=== PATIENT | female | born 1940 | race Caucasian/White ===

== ENCOUNTER → 2016-05-29 | Day surgery (SDC) | payer BC ==
[2016-05-10 13:14] VITALS: Ht 167.6 cm; Wt 54.5 kg
[~2016-05-29] VITALS: Ht 167.6 cm; Wt 54.5 kg
[~2016-05-29] MED LIST: 500ML BSS 0.3ML EPI 1:1000PF IRRIG ONE; ACETAMINOPHEN 325 MG TAB PO PRN; AMVISC PLUS 0.8ML SYRINGE INT OCU ONE; ATROPINE SULFATE 0.1 MG/ML 5ML SYR IV PRN; BRIMONIDINE TART 0.2% OP SOLN PER DROP CHARGE ONE; BSS FLUSH ONE; CHOL2000 PO; DTRSR4 PO; ENDOCOAT 0.85ML SYRINGE INT OCU ONE; EpHEDrine SULFATE INJ 50 MG/ML AMP IV PRN; EpINEphrine INJ 1MG/ML AMP 1 MG/ML AMP ONE; LACTATED RINGER'S 1000ML 500 ML IV SCH; LIDOCAINE 4% OP SOLN DROP CHARGE ONE; LIDOCAINE 4% OP SOLN DROP CHARGE OPR SCH; LIDOCAINE HCL 1% MPF 2 ML VIAL ONE; METH1TAB66 PO; MIDAZOLAM HCL 1 MG/ML 2ML VIAL ONE; MOXIFLOXACIN OPH SOLN PER DROP CHARGE ONE; NEPA0.6D OPR; POVIDONE-IODINE OP SOLN 30 ML BTL ONE; PRED1SUS OPR; PROPARACAINE 0.5% OP SOLN PER DROP CHARGE OPR SCH; RALO60TA31 PO; SULF-183 PO; TOBRAMYCIN/DEXAMETHASONE OPH OINT PER APPLN CHARGE ONE
[2016-05-29] MEDS: PHENYLEPHRINE HCL 2.5% OP SOLN PER DROP CHARGE OPR SCH ×2 (08:28→08:33)
[2016-05-29] MEDS: TROPICAMIDE 1% OP SOLN PER DROP CHARGE OPR SCH ×2 (08:29→08:34)
[2016-05-29] MEDS: CYCLOPENTOLATE HCL 1% OP SOLN PER DROP CHARGE OPR SCH ×2 (08:30→08:35)
[2016-05-29] MEDS: KETOROLAC 0.5% OP SOLN PER DROP CHARGE OPR SCH ×2 (08:31→08:36)
[2016-05-29] MEDS: MOXIFLOXACIN OPH SOLN PER DROP CHARGE OPR SCH ×2 (08:32→08:42)
--- NOTE | 2016-05-29 08:43 | History & Physical Bridge - [place] ---
H&P Re-Evaluation Bridge Note: I have examined the patient, reviewed the History & Physical and in the interval since the performance of the History & Physical I have noted the following changes of clinical significance: No changes noted
--- NOTE | 2016-05-29 10:03 | Discharge Instructions-SurgCtr ---
Discharge Instructions Date of Service May 29, 2016. Visit Reason for Visit: Cataract Right Eye Discharge Discharge Diagnosis / Problem: cataract right eye Discharge Goals Goal(s): Improve function Activity Recommendations Activity Limitations: per Instructions/Follow-up section Lifting Limitations: no more than 5 pounds Anesthesia . Post Anesthesia Instructions: If you have had General Anesthesia or IV Sedation: * Do not drive today. * Resume driving when surgeon permits. * Do not make important decisions or sign legal documents today. * Call surgeon for: 1. Temperature elevations greater than 101 degrees F. 2. Uncontrollable pain. 3. Excessive bleeding. 4. Persistent nausea and vomiting. 5. Medication intolerance (nausea, vomiting or rash). * For nausea and vomiting use only clear liquids such as: tea, soda, bouillon until nausea subsides, then gradually increase diet as tolerated. * If you have any concerns or questions, call your surgeon's office. If physician is unavailable and it is an emergency, call 911 or go to the nearest emergency room. . Instructions / Follow-Up Instructions / Follow-Up ACTIVITY RECOMMENDATIONS: * Light activities * You may walk outside, read, watch television. * Mild irritation and blurred vision are common for the first few days, redness around the white part of the eye is common. MEDICATIONS: Resume previous medications unless instructed otherwise by your surgeon. Eye drops (today and tomorrow): Cipro - one drop in operative eye every 2 hours while awake Prednisolone 1% - one drop in operative eye every 2 hours while awake Ilevro - one drop operative eye 1 times daily SPECIAL CARE INSTRUCTIONS: * If any problems or concerns, please call Dr. Marr's office at . * Keep plastic shield taped over eye to sleep at night. * Keep plastic shield taped over eye except to administer eye drops. * Keep plastic shield on until office visit the following day. FOLLOW UP VISIT: Follow-up with Dr. Marr in the [place] office as scheduled. If not already scheduled, please call the office at . Diet Recommendations Home Diet: resume previous diet Procedures Procedures Performed: Right Cataract Phacoemulsification With Intraocular Lens Implant Pending Studies Studies pending at discharge: no Medical Emergencies . Who to Call and When: Medical Emergencies: If at any time you feel your situation is an emergency, please call 911 immediately. . Non-Emergent Contact Non-Emergency issues call your: Academy Director . . "Provider Documentation" section prepared by Jg Marr.
--- NOTE | 2016-05-29 10:04 | [facility] Post Operative Brief Note ---
Immediate Operative Summary Operative Date May 29, 2016. Pre-Operative Diagnosis Cataract Right Eye Post-Operative Diagnosis Same Procedure(s) Performed Right Cataract Phacoemulsification With Intraocular Lens Implant Surgeon Dr. Marr Surveillance Specialist Surgeon(s) None Estimated Blood Loss 0 Findings cataract right eye Specimens None Complication(s) None Disposition Recovery Room / PACU
[2016-05-29 10:06] VITALS: TEMP 37.1
[2016-05-29 10:28] VITALS: BP 139/84; PULSE 72; O2SAT 100
--- NOTE | 2016-05-29 10:34 | Anesthesia Progress Nt - [facility] ---
Anesthesia Post Op Note Date & Time May 29, 2016 at 10:33 Vital Signs Pain Intensity: 0 Vital Signs Past 12 Hours Date Time Temp Pulse Resp B/P Pulse Ox O2 Delivery O2 Flow Rate FiO2 05/29/16 10:28 72 16 139/84 100 Room Air 05/29/16 10:06 37.1 67 16 148/79 99 Room Air 05/29/16 08:04 36.4 70 20 131/60 100 Room Air Notes Mental Status: alert / awake / arousable, participated in evaluation Pt Amnestic to Procedure: Yes Nausea / Vomiting: adequately controlled Pain: adequately controlled Airway Patency, RR, SpO2: stable & adequate BP & HR: stable & adequate Hydration State: stable & adequate Anesthetic Complications: no major complications apparent
--- NOTE | 2016-05-29 14:09 | OPERATIVE REPORT ---
DATE OF OPERATION: 05/29/2016 PREOPERATIVE DIAGNOSIS: Cataract, right eye. POSTOPERATIVE DIAGNOSIS: Cataract, right eye. PROCEDURE: Phacoemulsification cataract extraction with intraocular lens placement, right eye. SURGEON: Dr. Marr. COMPLICATIONS: None. ESTIMATED BLOOD LOSS: None. ANESTHESIA: Topical with sedation. OPERATION AND FINDINGS: DESCRIPTION OF PROCEDURE: After informed consent was obtained in the holding area the patient was wheeled back to the Operating Room where cardiac monitoring leads and oxygen by nasal cannula was administered by Anesthesia. Gentle IV sedation was given, and the patient's right eye was prepped and draped in usual sterile fashion. A wire lid speculum was placed into the right eye and the operating microscope was swung into position. Using 0.12 forceps and a Supersharp blade a paracentesis port was made 3 o'clock hours away from the 9 o'clock position of patient's right eye. 1% non-preserved Lidocaine was then injected into the anterior chamber for anesthesia. A 2.2 mm keratotome blade was then used to make a shelved clear corneal incision at the 9 o'clock position of her right eye. Amvisc was injected into the anterior chamber and a cystotome and Utrata forceps were used to perform a curvilinear capsulorrhexis. BSS on a hydrodissection cannula was used to hydrodissect the lens nucleus away from the capsular bag. The phacoemulsification handpiece was then used in a stop and chop fashion to remove the lens nucleus. The irrigation and aspiration handpiece was then used to remove the residual cortical material. Amvisc was injected into the capsular bag and anterior chamber and a Bausch \T\ Lomb MX60 21.5 Diopter intraocular lens was injected into the capsular bag. Irrigation and aspiration handpiece was used to remove the residual viscoelastic material. The wounds were hydrated and noted to be watertight. The wire lid speculum was removed from the eye. Vigamox, Brimonidine, and TobraDex ointment were placed on the eye and it was shielded. It should be noted that EndoCoat was used throughout the case to protect the cornea endothelium. DISPOSITION: The patient tolerated the procedure well and was wheeled to the post anesthesia care unit in stable condition. I attest to the content of the Intraoperative Record and any orders documented therein. Any exceptions are noted below. I attest to the content of the Intraoperative Record and any orders documented therein. Any exceptio ns are noted below.
== END | disposition home or self-care (01) ==
LOC: X.SURG 07:50
PROVIDERS: ATTEND Ophthalmology
DX: H25.11 Age-related nuclear cataract, right eye (principal)

== ENCOUNTER → 2016-06-01 | Outpatient (CLI) | payer BC ==
[~2016-06-01] MED LIST changes: -500ML BSS 0.3ML EPI 1:1000PF IRRIG ONE; -ACETAMINOPHEN 325 MG TAB PO PRN; -AMVISC PLUS 0.8ML SYRINGE INT OCU ONE; -ATROPINE SULFATE 0.1 MG/ML 5ML SYR IV PRN; -BRIMONIDINE TART 0.2% OP SOLN PER DROP CHARGE ONE; -BSS FLUSH ONE; -ENDOCOAT 0.85ML SYRINGE INT OCU ONE; -EpHEDrine SULFATE INJ 50 MG/ML AMP IV PRN; -EpINEphrine INJ 1MG/ML AMP 1 MG/ML AMP ONE; -LACTATED RINGER'S 1000ML 500 ML IV SCH; -LIDOCAINE 4% OP SOLN DROP CHARGE ONE; -LIDOCAINE 4% OP SOLN DROP CHARGE OPR SCH; -LIDOCAINE HCL 1% MPF 2 ML VIAL ONE; -MIDAZOLAM HCL 1 MG/ML 2ML VIAL ONE; -MOXIFLOXACIN OPH SOLN PER DROP CHARGE ONE; -POVIDONE-IODINE OP SOLN 30 ML BTL ONE; -PROPARACAINE 0.5% OP SOLN PER DROP CHARGE OPR SCH; -TOBRAMYCIN/DEXAMETHASONE OPH OINT PER APPLN CHARGE ONE
== END | disposition home or self-care (01) ==
LOC: C.LAB 09:52
PROVIDERS: ATTEND Nurse Practitioner Family
DX: R35.0 Frequency of micturition (principal)

== ENCOUNTER → 2016-06-12 | Day surgery (SDC) | payer BC ==
[2016-06-09 15:37] VITALS: Ht 167.6 cm; Wt 54.5 kg
[~2016-06-12] VITALS: Ht 167.6 cm; Wt 54.5 kg
[~2016-06-12] MED LIST changes: +500ML BSS 0.3ML EPI 1:1000PF IRRIG ONE; +ACETAMINOPHEN 325 MG TAB PO PRN; +AMVISC PLUS 0.8ML SYRINGE INT OCU ONE; +ATROPINE SULFATE 0.1 MG/ML 5ML SYR IV PRN; +BRIMONIDINE TART 0.2% OP SOLN PER DROP CHARGE ONE; +BSS FLUSH ONE; +ENDOCOAT 0.85ML SYRINGE INT OCU ONE; +EpHEDrine SULFATE INJ 50 MG/ML AMP IV PRN; +EpINEphrine INJ 1MG/ML AMP 1 MG/ML AMP ONE; +LACTATED RINGER'S 1000ML 500 ML IV SCH; +LIDOCAINE 4% OP SOLN DROP CHARGE ONE; +LIDOCAINE 4% OP SOLN DROP CHARGE OPL SCH; +LIDOCAINE HCL 1% MPF 2 ML VIAL ONE; +MIDAZOLAM HCL 1 MG/ML 2ML VIAL ONE; +MOXIFLOXACIN OPH SOLN PER DROP CHARGE ONE; +ONDANSETRON INJ 2 MG/ML 2 ML VIAL IV PRN; +POVIDONE-IODINE OP SOLN 30 ML BTL ONE; +PROPARACAINE 0.5% OP SOLN PER DROP CHARGE OPL SCH; +TOBRAMYCIN/DEXAMETHASONE OPH OINT PER APPLN CHARGE ONE
[2016-06-12] MEDS: PHENYLEPHRINE HCL 2.5% OP SOLN PER DROP CHARGE OPL SCH ×2 (11:41→11:46)
[2016-06-12] MEDS: TROPICAMIDE 1% OP SOLN PER DROP CHARGE OPL SCH ×2 (11:42→11:47)
[2016-06-12] MEDS: CYCLOPENTOLATE HCL 1% OP SOLN PER DROP CHARGE OPL SCH ×2 (11:43→11:48)
[2016-06-12] MEDS: KETOROLAC 0.5% OP SOLN PER DROP CHARGE OPL SCH ×2 (11:44→11:48)
[2016-06-12] MEDS: MOXIFLOXACIN OPH SOLN PER DROP CHARGE OPL SCH ×2 (11:45→11:55)
--- NOTE | 2016-06-12 12:35 | Discharge Instructions-SurgCtr ---
Discharge Instructions Date of Service Jun 12, 2016. Visit Reason for Visit: Cataract Left Eye Discharge Discharge Diagnosis / Problem: cataract left eye Discharge Goals Goal(s): Improve function Activity Recommendations Activity Limitations: per Instructions/Follow-up section Lifting Limitations: no more than 5 pounds Anesthesia . Post Anesthesia Instructions: If you have had General Anesthesia or IV Sedation: * Do not drive today. * Resume driving when surgeon permits. * Do not make important decisions or sign legal documents today. * Call surgeon for: 1. Temperature elevations greater than 101 degrees F. 2. Uncontrollable pain. 3. Excessive bleeding. 4. Persistent nausea and vomiting. 5. Medication intolerance (nausea, vomiting or rash). * For nausea and vomiting use only clear liquids such as: tea, soda, bouillon until nausea subsides, then gradually increase diet as tolerated. * If you have any concerns or questions, call your surgeon's office. If physician is unavailable and it is an emergency, call 911 or go to the nearest emergency room. . Instructions / Follow-Up Instructions / Follow-Up ACTIVITY RECOMMENDATIONS: * Light activities * You may walk outside, read, watch television. * Mild irritation and blurred vision are common for the first few days, redness around the white part of the eye is common. MEDICATIONS: Resume previous medications unless instructed otherwise by your surgeon. Eye drops (today and tomorrow): Cipro - one drop in operative eye every 2 hours while awake Prednisolone 1% - one drop in operative eye every 2 hours while awake Ilevro - one drop operative eye 1 times daily SPECIAL CARE INSTRUCTIONS: * If any problems or concerns, please call Dr. Marr's office at . * Keep plastic shield taped over eye to sleep at night. * Keep plastic shield taped over eye except to administer eye drops. * Keep plastic shield on until office visit the following day. FOLLOW UP VISIT: Follow-up with Dr. Marr in the [place] office as scheduled. If not already scheduled, please call the office at . Diet Recommendations Home Diet: resume previous diet Procedures Procedures Performed: Left Cataract Phacoemulsification With Intraocular Lens Implant Pending Studies Studies pending at discharge: no Medical Emergencies . Who to Call and When: Medical Emergencies: If at any time you feel your situation is an emergency, please call 911 immediately. . Non-Emergent Contact Non-Emergency issues call your: Master Carpenter . . "Provider Documentation" section prepared by Jg Marr.
--- NOTE | 2016-06-12 12:35 | [facility] Post Operative Brief Note ---
Immediate Operative Summary Operative Date Jun 12, 2016. Pre-Operative Diagnosis Cataract left eye Post-Operative Diagnosis same Procedure(s) Performed Left Cataract Phacoemulsification With Intraocular Lens Implant Surgeon Dr Marr Real Property Evaluator Surgeon(s) 0 Estimated Blood Loss 0 Findings cataract left eye Specimens 0 Complication(s) None Disposition Recovery Room / PACU
[2016-06-12 12:46] VITALS: TEMP 36.3
[2016-06-12 13:02] VITALS: BP 117/76; PULSE 73; O2SAT 98
--- NOTE | 2016-06-12 13:02 | Anesthesia Progress Nt - [facility] ---
Anesthesia Post Op Note Date & Time Jun 12, 2016 at 13:01 Vital Signs Pain Intensity: 0 Vital Signs Past 12 Hours Date Time Temp Pulse Resp B/P Pulse Ox O2 Delivery O2 Flow Rate FiO2 06/12/16 12:46 36.3 66 14 116/74 97 Room Air 06/12/16 11:38 36.6 77 16 136/77 97 Room Air Notes Mental Status: alert / awake / arousable, participated in evaluation Pt Amnestic to Procedure: Yes Nausea / Vomiting: adequately controlled Pain: adequately controlled Airway Patency, RR, SpO2: stable & adequate BP & HR: stable & adequate Hydration State: stable & adequate Anesthetic Complications: no major complications apparent
--- NOTE | 2016-06-12 15:14 | OPERATIVE REPORT ---
DATE OF OPERATION: 06/12/2016 PREOPERATIVE DIAGNOSIS: Cataract, left eye. POSTOPERATIVE DIAGNOSIS: Cataract, left eye. PROCEDURE: Phacoemulsification cataract extraction with intraocular lens placement, left eye. SURGEON: Dr. Marr. COMPLICATIONS: None. ESTIMATED BLOOD LOSS: None. ANESTHESIA: Topical with sedation. DESCRIPTION OF PROCEDURE: After informed consent was obtained in the holding area the patient was wheeled back to the Operating Room where cardiac monitoring leads and oxygen by nasal cannula was administered by Anesthesia. Gentle IV sedation was given, and the patient's left eye was prepped and draped in usual sterile fashion. A wire lid speculum was placed into the left eye and the operating microscope was swung into position. Using 0.12 forceps and a Supersharp blade a paracentesis port was made 3 o'clock hours away from the 3 o'clock position of patient's left eye. 1% non-preserved Lidocaine was then injected into the anterior chamber for anesthesia. A 2.2 mm keratotome blade was then used to make a shelved clear corneal incision at the 3 o'clock position of her left eye. Amvisc was injected into the anterior chamber and a cystotome and Utrata forceps were used to perform a curvilinear capsulorrhexis. BSS on a hydrodissection cannula was used to hydrodissect the lens nucleus away from the capsular bag. The phacoemulsification handpiece was then used in a stop and chop fashion to remove the lens nucleus. The irrigation and aspiration handpiece was then used to remove the residual cortical material. Amvisc was injected into the capsular bag and anterior chamber and a Bausch \T\ Lomb MX60 28.0 Diopter intraocular lens was injected into the capsular bag. Irrigation and aspiration handpiece was used to remove the residual viscoelastic material. The wounds were hydrated and noted to be watertight. The wire lid speculum was removed from the eye. Vigamox, Brimonidine, and TobraDex ointment were placed on the eye and it was shielded. It should be noted that EndoCoat was used during the case to protect the cornea endothelium. DISPOSITION: The patient tolerated the procedure well and was wheeled to the post anesthesia care unit in stable condition. I attest to the content of the Intraoperative Record and any orders documented therein. Any exceptions are noted below. I attest to the content of the Intraoperative Record and any orders documented therein. Any exceptio ns are noted below.
== END | disposition home or self-care (01) ==
LOC: X.SURG 11:27
PROVIDERS: ATTEND Ophthalmology
DX: H25.12 Age-related nuclear cataract, left eye (principal); H43.89 Other disorders of vitreous body

== ENCOUNTER → 2017-01-25 | Outpatient (CLI) | payer BC ==
[~2017-01-25] MED LIST changes: -500ML BSS 0.3ML EPI 1:1000PF IRRIG ONE; -ACETAMINOPHEN 325 MG TAB PO PRN; -AMVISC PLUS 0.8ML SYRINGE INT OCU ONE; -ATROPINE SULFATE 0.1 MG/ML 5ML SYR IV PRN; -BRIMONIDINE TART 0.2% OP SOLN PER DROP CHARGE ONE; -BSS FLUSH ONE; -ENDOCOAT 0.85ML SYRINGE INT OCU ONE; -EpHEDrine SULFATE INJ 50 MG/ML AMP IV PRN; -EpINEphrine INJ 1MG/ML AMP 1 MG/ML AMP ONE; -LACTATED RINGER'S 1000ML 500 ML IV SCH; -LIDOCAINE 4% OP SOLN DROP CHARGE ONE; -LIDOCAINE 4% OP SOLN DROP CHARGE OPL SCH; -LIDOCAINE HCL 1% MPF 2 ML VIAL ONE; -MIDAZOLAM HCL 1 MG/ML 2ML VIAL ONE; -MOXIFLOXACIN OPH SOLN PER DROP CHARGE ONE; -ONDANSETRON INJ 2 MG/ML 2 ML VIAL IV PRN; -POVIDONE-IODINE OP SOLN 30 ML BTL ONE; -PROPARACAINE 0.5% OP SOLN PER DROP CHARGE OPL SCH; -TOBRAMYCIN/DEXAMETHASONE OPH OINT PER APPLN CHARGE ONE
== END | disposition home or self-care (01) ==
LOC: C.MAMM 07:48
PROVIDERS: ATTEND Family Medicine
DX: M85.851 Other specified disorders of bone density and structure, right thigh (principal); M85.852 Other specified disorders of bone density and structure, left thigh; M85.831 Other specified disorders of bone density and structure, right forearm; M85.832 Other specified disorders of bone density and structure, left forearm

== ENCOUNTER → 2017-04-30 | Outpatient (CLI) | payer BC ==
[~2017-04-30] MED LIST changes: -SULF-183 PO; +SULF-302 PO
[2017-04-30 10:01] LABS: CREATININE 1.06 mg/dl (0.60-1.20)
== END | disposition home or self-care (01) ==
LOC: C.LAB1850 08:54
PROVIDERS: ATTEND Internal Medicine Rheumatology
DX: M81.0 Age-related osteoporosis without current pathological fracture (principal); E55.9 Vitamin D deficiency, unspecified; E61.8 Deficiency of other specified nutrient elements

== ENCOUNTER → 2017-10-01 | Outpatient (CLI) | payer BC | END | disposition home or self-care (01) | LOC: C.LABSPEC 11:34 | PROVIDERS: ATTEND Urology | DX: R39.15 Urgency of urination (principal) ==

== ENCOUNTER 2022-08-08 12:13 | Inpatient (IN) ==
[2022-08-08] MEDS ORDERED: fentaNYL citrate PF 100 MCG/2 ML VIAL IV PRN (12:26)
[2022-08-08] MEDS ORDERED: SODIUM CHLORIDE 0.9% 500 ML IV STA (12:26)
[2022-08-08] MEDS ORDERED: ONDANSETRON INJ 2 MG/ML 2 ML VIAL IV STA (12:26)
--- NOTE | 2022-08-08 12:32 | Emergency Department Note ---
Impression & Plan Acute cholecystitis, Right sided abdominal pain ED Provider Note NAME: SANTY OCAMPO AGE: 81 SEX: F : 1940 ARRIVES VIA: Walk-In INFORMANT: Patient, ED PROVIDER(S): Goyo Plascencia DO CHIEF COMPLAINT: Abdominal pain HPI: The patient is an 81-year-old female who presented to the emergency department for an evaluation of abdominal pain. The patient had abdominal pain since last . She describes right-sided abdominal pain which is very severe. She states is worsened with food. Worsens with ambulation and palpation over the lower abdomen. The patient denies having any fever but she has had vomiting and now she is unable to eat or drink because of the pain. She has had dry heaving. The patient was seen by the surgeon today and sent back to the emergency department for further evaluation ROS: See above HPI for pertinent positives & negatives. A total of 10 systems reviewed and were otherwise negative. PAST MEDICAL HISTORY: See Below PAST SURGICAL HISTORY: See Below FAMILY HISTORY: See Below SOCIAL HISTORY: See Below HOME MEDICATIONS: See Below ALLERGIES: See Below VITALS: See Below PHYSICAL EXAMINATION: GENERAL: The patient is awake and alert. She is very anxious. EYES: The conjunctivae are clear. The pupils are round and reactive. EARS, NOSE, MOUTH AND THROAT: The nose is without any evidence of any deformity. NECK: The neck is nontender and supple. RESPIRATORY: Normal respiratory effort is noted there is no evidence of wheezing rhonchi or rales CARDIOVASCULAR: Regular rate and rhythm noted there no murmurs rubs or gallops normal S1 normal S2. GASTROINTESTINAL: The abdomen is soft. There is right-sided abdominal tenderness to palpation which is moderate MUSCULOSKELETAL/EXTREMITIES: There is no evidence of gross deformity full range of motion is noted in the hips and shoulders. SKIN: There is no obvious evidence of any rash. There are no petechiae, pallor or cyanosis noted. NEUROLOGIC: Patient is awake alert and oriented x3. MEDICAL DECISION MAKING: The patient is an 81-year-old female who presented to the emergency department for abdominal pain. The patient's had right upper quadrant abdominal pain as we ll as right lower quadrant abdominal pain over the course of the last week. The patient was seen in our facility recently. She was diagnosed with cholecystitis and given follow-up with general surgery. She did have a follow-up appointment today but was sent to the emergency department because of the degree of pain. The patient was treated with IV fluids IV antibiotics and IV pain medication. On reevaluation she was feeling much better. I discussed her condition with the on-call general surgeon [facility] agreed to evaluate the patient in the emergency department for further management and disposition. The patient was feeling much better on reevaluation. I do feel there is some further work-up she may need including MRCP. She has distended gallbladder but there is no stones. Triage Nursing notes reviewed. Prior medical records reviewed Vital Signs: reviewed and remarkable for elevated blood pressure. Differential diagnosis: Etiologies such as appendicitis, diverticulitis, obstruction, inflammatory bowel disease, renal colic, PUD, biliary pathology, pancreatitis, mesenteric ischemia, aortic pathology, infections, genitourinary, UTI, perforated viscus, as well as others were entertained. ER treatment provided: See below Diagnostics interpreted by me: ECG: EKG was obtained in the emergency department. My interpretation is normal sinus rhythm at 75 bpm. There were no PVCs noted. Nonspecific ST abnormalities with peak T waves were noted throughout. There were also ST depressions. This was compared to a tracing from August 05, 2022. No specific changes were noted. Cardiac Monitoring: An order was placed for continuous cardiac monitoring. The monitor shows a rate of 76 bpm with sinus rhythm. Laboratory studies: As stated above and show below. Imaging studies: See below. Radiographic imaging was reviewed by myself Consultation(s): I discussed this case with Dr. Bray who states he sent the patient to the emergency department because she was in too much pain and he could not evaluate her in the office. He recommends medical admission with consultation with the on-call surgeon. I discussed this case with Dr. Shabazz who is on for unassigned general surgery. I discussed this case with Dr. Solorzano who is on-call for the [facility] hospitalist group. 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 Taina Jones at [facility] History of ultrasound guided needle biopsy (04/20/21) Breast - Right Hx of BSO (bilateral salpingo-oophorectomy) Hx of tonsillectomy S/P right mastectomy S/P tubal ligation Family History Mother Breast cancer Sister Ovarian cancer Multiple sclerosis Aunt Ovarian cancer Maternal Uterine cancer Breast cancer Grandmother (Maternal) Cancer Father Heart disease Daughter Sarcoma Daughter BRCA gene mutation positive Social History Smoking Status: Never smoker Tobacco Type: Cigarettes packs per day: 0.4; Second Hand Exposure: Yes (as a child, parents smoked in home); Do You Dip or Chew Tobacco: No; Hx Alcohol Use: Yes Alcohol type: wine Alcohol Intake Frequency: Monthly or Less Hx Substance Use: No Preferred Language: Albanian Communication Ability: Effective Visual Impairment: Limited Hearing Ability: Use of Hearing Aid [employer] Required: No Beliefs That Will Affect Care: None marital status: / Current Living Situation: Alone current occupational status: retired current occupation: Artist How many Children do You have: 2 How many Children do You have Comment: 1 living, 1 Feels Safe at Home: Yes Childhood Exposure to Second-Hand Smoke: Yes Diet: regular during the past year weight has: remained stable Dental Care, Regularly: Yes Assistive Devices: Glasses and Hearing Aid - Bilateral Allergies Allergies Allergy/AdvReac Type Severity Reaction Status Date / Time tetracycline Allergy Unknown BRUISING; Verified 08/08/22 15:37 rash on legs Home Meds Home Medications Medication Instructions Recorded Confirmed atorvastatin 20 mg tablet 20 mg PO HS 05/15/19 08/08/22 cholecalciferol (vitamin D3) 50 2,000 unit PO HS 05/15/19 08/08/22 mcg (2,000 unit) tablet (Vitamin D3) coQ10 (ubiquinol) 100 mg capsule 100 mg PO HS 05/15/19 08/08/22 denosumab 60 mg/mL subcutaneous 60 mg subcut UD 03/03/20 08/08/22 syringe (Prolia) metoprolol succinate 25 mg 12.5 mg PO HS 07/05/20 08/08/22 tablet,extended release 24 hr multivitamin (Daily Multi-Vitamin 1 tab PO DAILY 05/03/21 08/08/22 tablet) calcium carb-Ca gluc 500 mg 2 tab PO DAILY 08/01/21 08/08/22 calcium-magnesium ox-Mg gluc 250 mg tablet (Calcium Magnesium) tamoxifen 20 mg tablet 20 mg PO DAILY 10/12/21 08/08/22 mirabegron 50 mg tablet,extended 25 mg PO DAILY 08/08/22 08/08/22 release 24 hr (Myrbetriq) Previous Rx's Medication Instructions Recorded valacyclovir 500 mg tablet 500 mg PO BID PRN outbreak #30 tabs 10/12/21 (Valtrex) ondansetron 4 mg disintegrating 4 mg PO Q6H PRN nausea and 08/05/22 tablet vomiting #15 tabs Results & Data (ED) Vital Signs Vital Signs - 24 hr 08/08/22 12:18 08/08/22 12:26 08/08/22 14:48 Temperature 36.3 C L Temperature Source Temporal Artery Scan Pulse Rate 69 Pulse Rate [Right] 76 Pulse Rhythm [Right] Regular Pulse Strength [Right] Normal Respiratory Rate 16 18 Respiratory Effort / Characteristics Non-Labored Non-Labored Respiratory Depth Normal Normal Respiratory Pattern Regular Blood Pressure 189/121 H Blood Pressure [Left Arm] 159/74 H Blood Pressure Mean 143 Blood Pressure Mean [Left Arm] 102 Blood Pressure Position [Left Arm] Lying Pulse Oximetry 100 98 95 Oxygen Delivery Method Room Air Room Air Room Air Sepsis Recent Fever Within 48 Hours No Sepsis New/Unexplained Change in Mental Status No Sepsis Action Taken by Nursing No Action Required Home Medications Current Medication List: was personally reviewed by me Laboratory Data Attestation: I reviewed the patient's lab results. 08/08/22 12:44 08/08/22 12:44 Lab Results 08/08/22 08/08/22 08/08/22 Range/Units 12:44 12:44 13:45 WBC 10.38 (4.8-10.8) K/ul RBC 4.70 (4.20-5.40) M/uL Hgb 15.5 (12.0-16.0) g/dl Hct 41.3 (37.0-47.0) % MCV 87.9 (80.0-100.0) fL MCH 33.0 (25.0-34.0) pg MCHC 37.5 H (32.0-36.0) g/dL RDW Std Deviation 36.8 (36.4-46.3) fL RDW Coeff of Buzz 11.4 L (11.5-14.5) % Plt Count 175 (130-400) K/uL MPV 11.5 (9.4-12.4) fL Immature Gran % (Auto) 0.3 % Neut % (Auto) 85.7 % Lymph % (Auto) 8.2 % [place] % (Auto) 5.1 % Eos % (Auto) 0.3 % Baso % (Auto) 0.4 % Neut # (Auto) 8.90 H (1.40-6.50) K/uL Lymph # (Auto) 0.85 L (1.2-3.4) K/uL [place] # (Auto) 0.53 (0.11-0.59) K/uL Eos # (Auto) 0.03 (0-0.50) K/uL Baso # (Auto) 0.04 (0-0.2) K/uL Immature Gran # (Auto) 0.03 (0.01-0.20) K/uL Sodium 139 (136-145) mmol/L Potassium 4.0 (3.5-5.1) mmol/L Chloride 102 (98-107) mmol/L Carbon Dioxide 22 (21-32) mmol/L Anion Gap 15 H (3-11) BUN 28 H (6-23) mg/dl Creatinine 1.10 (0.6-1.2) mg/dl Est Cr Clr Drug Dosing Not Reportable Est GFR ( Amer) 53.8 ml/min Est GFR (Non-Af Amer) 46.4 ml/min BUN/Creatinine Ratio 25.5 H (10-20) Glucose 131 H (70-99(Fasting)) mg/dl Calcium 10.4 H (8.6-10.3) mg/dl Total Bilirubin 1.5 H (0.2-1.0) mg/dl AST 17 (13-39) U/L ALT 11 (7-52) U/L Alkaline Phosphatase 70 (34-104) U/L Troponin I High Sens 10.6 (0-14) pg/ml Total Protein 7.4 (6.0-8.3) gm/dl Albumin 4.4 (3.4-5.0) gm/dl Globulin 3.0 (2.5-4.0) gm/dl Albumin/Globulin Ratio 1.5 (0.9-2) Lipase 18 (11-82) U/L Urine Color Yellow Urine Appearance Clear (Clear) Urine pH 6.0 (4.5-7.5) Ur Specific Williams 1.011 (1.000-1.030) Urine Protein 1+ H (Negative) Urine Glucose (UA) Negative (Negative) Urine Ketones 2+ H (Negative) Urine Blood Negative (Negative) Urine Nitrite Negative (Negative) Urine Bilirubin Negative (Negative) Urine Urobilinogen Negative (Negative) Ur Leukocyte Esterase 2+ H (Negative) Urine WBC (Auto) 10-30 H (0-5) /hpf Urine RBC (Auto) 0-4 (0-4) /hpf U Hyaline Cast (Auto) 1-5 (0-5) /lpf U Epithel Cells (Auto) >30 H (0-5) /lpf Urine Bacteria (Auto) Negative (Negative) SARS-CoV-2, RNA, NAAT (NEGATIVE) 08/08/22 Range/Units Unknown WBC (4.8-10.8) K/ul RBC (4.20-5.40) M/uL Hgb (12.0-16.0) g/dl Hct (37.0-47.0) % MCV (80.0-100.0) fL MCH (25.0-34.0) pg MCHC (32.0-36.0) g/dL RDW Std Deviation (36.4-46.3) fL RDW Coeff of Buzz (11.5-14.5) % Plt Count (130-400) K/uL MPV (9.4-12.4) fL Immature Gran % (Auto) % Neut % (Auto) % Lymph % (Auto) % [place] % (Auto) % Eos % (Auto) % Baso % (Auto) % Neut # (Auto) (1.40-6.50) K/uL Lymph # (Auto) (1.2-3.4) K/uL [place] # (Auto) (0.11-0.59) K/uL Eos # (Auto) (0-0.50) K/uL Baso # (Auto) (0-0.2) K/uL Immature Gran # (Auto) (0.01-0.20) K/uL Sodium (136-145) mmol/L Potassium (3.5-5.1) mmol/L Chloride (98-107) mmol/L Carbon Dioxide (21-32) mmol/L Anion Gap (3-11) BUN (6-23) mg/dl Creatinine (0.6-1.2) mg/dl Est Cr Clr Drug Dosing Est GFR ( Amer) ml/min Est GFR (Non-Af Amer) ml/min BUN/Creatinine Ratio (10-20) Glucose (70-99(Fasting)) mg/dl Calcium (8.6-10.3) mg/dl Total Bilirubin (0.2-1.0) mg/dl AST (13-39) U/L ALT (7-52) U/L Alkaline Phosphatase (34-104) U/L Troponin I High Sens (0-14) pg/ml Total Protein (6.0-8.3) gm/dl Albumin (3.4-5.0) gm/dl Globulin (2.5-4.0) gm/dl Albumin/Globulin Ratio (0.9-2) Lipase (11-82) U/L Urine Color Urine Appearance (Clear) Urine pH (4.5-7.5) Ur Specific Williams (1.000-1.030) Urine Protein (Negative) Urine Glucose (UA) (Negative) Urine Ketones (Negative) Urine Blood (Negative) Urine Nitrite (Negative) Urine Bilirubin (Negative) Urine Urobilinogen (Negative) Ur Leukocyte Esterase (Negative) Urine WBC (Auto) (0-5) /hpf Urine RBC (Auto) (0-4) /hpf U Hyaline Cast (Auto) (0-5) /lpf U Epithel Cells (Auto) (0-5) /lpf Urine Bacteria (Auto) (Negative) SARS-CoV-2, RNA, NAAT NEGATIVE (NEGATIVE) Administered Medications Fentanyl Citrate (Fentanyl Citrate Pf 100 Mcg/2 Ml Vial) 50 mcg IV Q15M PRN PRN Reason: Pain Stop: 08/22/22 12:25 Last Admin: 08/08/22 12:51 Dose: 50 mcg Documented By: NH Discontinued Medications Sodium Chloride (Nss) 500 mls @ 999 mls/hr IV .Q31M STA Stop: 08/08/22 12:56 Last Admin: 08/08/22 12:51 Dose: 999 mls/hr Documented By: NH Cefoxitin Sodium (Mefoxin) 2,000 mg in 60 mls @ 100 mls/hr IV NOW STA Stop: 08/08/22 13:14 Last Admin: 08/08/22 12:51 Dose: 100 mls/hr Documented By: NH Ondansetron HCl (Ondansetron Inj 2 Mg/Ml 2 Ml Vial) 4 mg IV NOW STA Stop: 08/08/22 12:27 Last Admin: 08/08/22 12:51 Dose: 4 mg Documented By: NH Imaging Data Attestation: I personally reviewed and interpreted this imaging study as follows: My Impression: KUB was obtained in the emergency department. My interpretation is no free air or signs of obstruction, final report below. Radiologist's Impression: Gallbladder Ultrasound 08/08/22 12:39 US gallbladder CLINICAL HISTORY: Right upper quadrant pain. COMPARISON STUDY: CT of the abdomen and pelvis and right upper quadrant ultrasound August 05, 2022. FINDINGS: The gallbladder remains significantly distended. No gallstones are identified. A small amount of sludge within the gallbladder is noted. There is no gallbladder wall thickening. Positive sonographic Gonzalez sign was reported by the technologist. The site of pain was over the right mid to lower abdomen, overlying the distended gallbladder. Common bile duct is dilated, measuring 1.2 cm in caliber. No common bile duct calculi are identified. Pancreatic body is normal. Head and tail are obscured. There is no right hydronephrosis. No hepatic lesions are identified. IMPRESSION: 1. Persistent significant gallbladder distention. Small amount of sludge within the gallbladder. No gallstones. Positive sonographic Gonzalez sign. Acute cholecystitis cannot be excluded. A hepatobiliary scan could be obtained for further evaluation as indicated. 2. Mild biliary ductal dilatation could be correlated with obstructive liver function tests. ACT 112: Negative or not required by law. Electronically signed by: Dipak Villarreal M.D. 08/08/2022 2:54 PM KUB X-Ray 08/08/22 12:39 KUB HISTORY: Acute right upper quadrant abdominal pain ruq pain COMPARISON: CT 08/05/2022 FINDINGS: Nonobstructive bowel gas pattern. Moderate rectal fecal retention. Atherosclerosis of the aorta. 49 degrees levoscoliosis measured from T12-L4. No renal calculi. No ureteral calculi. No pneumoperitoneum or pneumatosis. No fracture. IMPRESSION: Nonobstructive bowel gas pattern. ACT 112: Negative or not required by law. The above report was generated using voice recognition software. It may contain grammatical, syntax or spelling errors. Electronically signed by: See Aguilar M.D. 08/08/2022 3:05 PM Discharge Plan Visit Data Chief Complaint: Abdominal Pain Stated Complaint: LOWER RIGHT ABDOMINAL PAIN ED Provider: Goyo Plascencia Discharge Problem: Acute cholecystitis, Right sided abdominal pain Patient Disposition: Being Evaluated by Hospitalist Forms Stand Alone Forms: My [facility] [employer] Prescriptions Prescriptions: No Action Calcium Magnesium 500 mg calcium -250 mg tablet 2 tab PO DAILY multivitamin [Daily Multi-Vitamin] Tablet 1 tab PO DAILY Prolia 60 mg/mL syringe 60 mg subcut UD Rx Instructions: every 6 months metoprolol succinate 25 mg tablet extended release 24 hr 12.5 mg PO HS tamoxifen 20 mg tablet 20 mg PO DAILY valacyclovir [Valtrex] 500 mg tablet 500 mg PO BID PRN (Reason: outbreak) Qty: 30 1RF Rx Instructions: Take one pill twice per day for 3 days at start of outbreak atorvastatin 20 mg tablet 20 mg PO HS cholecalciferol (vitamin D3) [Vitamin D3] 50 mcg (2,000 unit) Tablet 2,000 unit PO HS coQ10 (ubiquinol) 100 mg Capsule 100 mg PO HS ondansetron 4 mg tablet,disintegrating 4 mg PO Q6H PRN (Reason: nausea and vomiting) Qty: 15 0RF Myrbetriq 50 mg tablet extended release 24 hr 25 mg PO DAILY Rx Instructions: This dose was stated by patient. Referrals Referrals: Mirtha Comer [Primary Care Provider] -
[2022-08-08] MEDS ORDERED: cefOXitin 2,000 MG/60 ML BAG IV STA (12:39)
[2022-08-08 13:23] LABS: Basophils # (auto) 0.04 K/uL (0-0.2); Basophils % (auto) 0.4 %; Eosinophils # (auto) 0.03 K/uL (0-0.50); Eosinophils % (auto) 0.3 %; Hematocrit (blood only) 41.3 % (37.0-47.0); Hemoglobin 15.5 g/dl (12.0-16.0); Immature Granulocytes # (auto) 0.03 K/uL (0.01-0.20); Immature Granulocytes % (auto) 0.3 %; Lymphocytes # (auto) 0.85 K/uL (1.2-3.4); Lymphocytes % (auto) 8.2 %; Mean Corpuscular Hgb Conc 37.5 g/dL (32.0-36.0); Mean Corpuscular Volume 87.9 fL (80.0-100.0); Mean Platelet Volume 11.5 fL (9.4-12.4); Monocytes # (auto) 0.53 K/uL (0.11-0.59); Monocytes % (auto) 5.1 %; Neutrophils % (auto) 85.7 %; Platelet Count 175 K/uL (130-400); RDW Coefficient of Variation 11.4 % (11.5-14.5); RDW Standard Deviation 36.8 fL (36.4-46.3); White Blood Count 10.38 K/ul (4.8-10.8)
[2022-08-08 13:29] LABS: Alanine Aminotransferase 11 U/L (7-52); Albumin Globulin Ratio 1.5 (0.9-2); Albumin Level 4.4 gm/dl (3.4-5.0); Alkaline Phosphatase 70 U/L (34-104); Anion Gap 15 (3-11); Aspartate Aminotransferase 17 U/L (13-39); BUN Creatinine Ratio 25.5 (10-20); Bilirubin,Total 1.5 mg/dl (0.2-1.0); Blood Urea Nitrogen 28 mg/dl (6-23); Calcium 10.4 mg/dl (8.6-10.3); Carbon Dioxide 22 mmol/L (21-32); Chloride 102 mmol/L (98-107); Est GFR (African American) 53.8 ml/min; Est GFR (Non-African American) 46.4 ml/min; Glucose 131 mg/dl (70-99(Fasting)); Lipase 18 U/L (11-82); Sodium 139 mmol/L (136-145); Total Protein 7.4 gm/dl (6.0-8.3)
[2022-08-08 13:34] LABS: Troponin I High Sensitivity 10.6 pg/ml (0-14)
--- NOTE | 2022-08-08 14:56 | Ultrasound Report ---
US gallbladder CLINICAL HISTORY: Right upper quadrant pain. COMPARISON STUDY: CT of the abdomen and pelvis and right upper quadrant ultrasound August 05, 2022. FINDINGS: The gallbladder remains significantly distended. No gallstones are identified. A small amou nt of sludge within the gallbladder is noted. There is no gallbladder wall thickening. Positive sonog raphic Gonzalez sign was reported by the technologist. The site of pain was over the right mid to lower abdomen, overlying the distended gallbladder. Common bile duct is dilated, measuring 1.2 cm in calib er. No common bile duct calculi are identified. Pancreatic body is normal. Head and tail are obscured . There is no right hydronephrosis. No hepatic lesions are identified. IMPRESSION: 1. Persistent significant gallbladder distention. Small amount of sludge within the gallbladder. No g allstones. Positive sonographic Gonzalez sign. Acute cholecystitis cannot be excluded. A hepatobiliary scan could be obtained for further evaluation as indicated. 2. Mild biliary ductal dilatation could be correlated with obstructive liver function tests. ACT 112: Negative or not required by law. Electronically signed by: Dipak Villarreal M.D. 08/08/2022 2:54 PM
--- NOTE | 2022-08-08 15:06 | XRay Report ---
KUB HISTORY: Acute right upper quadrant abdominal pain ruq pain COMPARISON: CT 08/05/2022 FINDINGS: Nonobstructive bowel gas pattern. Moderate rectal fecal retention. Atherosclerosis of the a caitlin. 49 degrees levoscoliosis measured from T12-L4. No renal calculi. No ureteral calculi. No pneum operitoneum or pneumatosis. No fracture. IMPRESSION: Nonobstructive bowel gas pattern. ACT 112: Negative or not required by law. The above report was generated using voice recognition software. It may contain grammatical, syntax o r spelling errors. Electronically signed by: See Aguilar M.D. 08/08/2022 3:05 PM
[2022-08-08 15:11] LABS: Appearance Urine Clear (Clear); Bacteria Urine Automated Negative (Negative); Bilirubin Urine Negative (Negative); Blood Urine Negative (Negative); Color Urine Yellow; Epithelial Cell Urine Auto >30 /lpf (0-5); Glucose Urine UA Negative (Negative); Ketones Urine 2+ (Negative); Leukocyte Esterase Urine 2+ (Negative); Nitrite Urine Negative (Negative); Protein Urine 1+ (Negative); RBC Urine Automated 0-4 /hpf (0-4); Specific Gravity Urine 1.011 (1.000-1.030); Urobilinogen Urine Negative (Negative)
--- NOTE | 2022-08-08 15:47 | History & Physical Report ---
Date of Service August 08, 2022 Assessment & Plan (1) Acute cholecystitis: Plan: Melia is an 81-year-old female who presents with right upper quadrant pain of several days concerning for acute cholecystitis ? Acute cholecystitis No leukocytosis Patient has had several days of right upper quadrant pain, positive Gonzalez sign, anorexia. Has had reduced bowel movements, denies javon colored stools or GIB Total bilirubin 1.5, AST/ALT/alk phos not elevated High sensitive troponin normal No history of [place]/arrhythmia per patient Gallbladder ultrasound: 1. Persistent significant gallbladder distention. Small amount of sludge within the gallbladder. No gallstones. Positive sonographic Gonzalez sign. Acute cholecystitis cannot be excluded. A hepatobiliary scan could be obtained for further evaluation as indicated. 2. Mild biliary ductal dilatation could be correlated with obstructive liver function tests. Surgery consulted. Recommended HIDA scan and medical admission at this time. Continued on cefoxitin Multimodal pain control, Tylenol with breakthrough hydromorphone. Zofran for nausea Hypertension Continue metoprolol No chest pain/chest pressure preceding admission (2) BRCA gene mutation positive: Plan: Continue tamoxifen S/p mastectomy (3) Sleep apnea: Plan: CPAP nightly Plan DVT prophylaxis: SCDs pending surgical evaluation Diet: N.p.o., IVF at 125 cc/h Disposition: Medical/surgical CODE STATUS: Full code History of Present Illness Primary Care Provider: Mirtha Souleymane Cárdenas is an 81-year-old female with a past medical history of BRCA positive gene mutation, sleep apnea, hyperlipidemia, vertigo Since has been having R abdomen between hip and ribs. Has 1 episode of pain like this several years ago Taking ibuprofen every 6 hours, helped the pain. Takin 2 tablets every 6 hours, 200mg tablets. Pain is worse with standing as it causes nauseas No BMs in a few days. Hasn't eaten in a few days, no appetite No fevers, +chills Hx of mild mitral valve prolapse, denies other history of heart problems/heart failure. Takes metoprolol. No history of lung problems. Medical History: Reviewed Medications: Reviewed. Did not take any meds this morning. Surgical History: Reviewed Family history: Reviewed Allergies: Reviewed. Social History: No tobacco product use, rare social etoh none in the last 4 days Code Status: Full Code Allergies Allergy/AdvReac Type Severity Reaction Status Date / Time tetracycline Allergy Unknown BRUISING; Verified 08/08/22 15:37 rash on legs Home Medications Medication Instructions Recorded Confirmed Type atorvastatin 20 mg tablet 20 mg PO HS 05/15/19 08/08/22 History cholecalciferol (vitamin D3) 50 2,000 unit PO HS 05/15/19 08/08/22 History mcg (2,000 unit) tablet (Vitamin D3) coQ10 (ubiquinol) 100 mg capsule 100 mg PO HS 05/15/19 08/08/22 History denosumab 60 mg/mL subcutaneous 60 mg subcut UD 03/03/20 08/08/22 History syringe (Prolia) metoprolol succinate 25 mg 12.5 mg PO HS 07/05/20 08/08/22 History tablet,extended release 24 hr multivitamin (Daily Multi-Vitamin 1 tab PO DAILY 05/03/21 08/08/22 History tablet) calcium carb-Ca gluc 500 mg 2 tab PO DAILY 08/01/21 08/08/22 History calcium-magnesium ox-Mg gluc 250 mg tablet (Calcium Magnesium) tamoxifen 20 mg tablet 20 mg PO DAILY 10/12/21 08/08/22 History valacyclovir 500 mg tablet 500 mg PO BID PRN outbreak #30 tabs 10/12/21 08/08/22 Rx (Valtrex) ondansetron 4 mg disintegrating 4 mg PO Q6H PRN nausea and 08/05/22 08/08/22 Rx tablet vomiting #15 tabs mirabegron 50 mg tablet,extended 25 mg PO DAILY 08/08/22 08/08/22 History release 24 hr (Myrbetriq) Past Med/Surg History Medical History Abnormal gallbladder ultrasound BRCA gene mutation positive HSV-1 (herpes simplex virus 1) infection cold sores not at present Hypercholesterolemia Hyperlipidemia Malignant neoplasm of upper-outer quadrant of right breast in female, estrogen receptor positive (04/20/21) Mitral regurgitation Osteopenia Sleep apnea Urinary urgency Vitamin D deficiency Surgical History H/O colonoscopy H/O thumb surgery Right + Left History of biopsy (05/31/21) Breast - Right History of dental surgery dental implant History of lumpectomy of right breast (06/08/21) Right Breast Lumpectomy with Preoperative Needle Localization x2 and Right Axillary [place] Lymph Node Biopsy Dr. Taina Jones at [facility] History of ultrasound guided needle biopsy (04/20/21) Breast - Right Hx of BSO (bilateral salpingo-oophorectomy) Hx of tonsillectomy S/P right mastectomy S/P tubal ligation Family History Mother Breast cancer Sister Ovarian cancer Multiple sclerosis Aunt Ovarian cancer Maternal Uterine cancer Breast cancer Grandmother (Maternal) Cancer Father Heart disease Daughter Sarcoma Daughter BRCA gene mutation positive Social History Smoking Status: Never smoker Tobacco Type: Cigarettes packs per day: 0.4; Second Hand Exposure: Yes (as a child, parents smoked in home); Do You Dip or Chew Tobacco: No; Hx Alcohol Use: Yes Alcohol type: wine Alcohol Intake Frequency: Monthly or Less Hx Substance Use: No Preferred Language: Yi Communication Ability: Effective Visual Impairment: Limited Hearing Ability: Use of Hearing Aid Cobol Application Developer Required: No Beliefs That Will Affect Care: None marital status: / Current Living Situation: Alone current occupational status: retired current occupation: Artist How many Children do You have: 2 How many Children do You have Comment: 1 living, 1 Feels Safe at Home: Yes Childhood Exposure to Second-Hand Smoke: Yes Diet: regular during the past year weight has: remained stable Dental Care, Regularly: Yes Assistive Devices: Glasses and Hearing Aid - Bilateral Review of Systems Review of Systems: All systems reviewed & are unremarkable except as noted in HPI & below Physical Exam Physical Exam: General: A&Ox3. NAD. Cooperative. HEENT: Atraumatic, normocephalic. Pulm: CTAB A&P. -wheezes, -rales, -rhonchi. Symmetrical chest rise. No increased work of breathing. No respiratory distress. Cardiac: RRR, soft SM. Radial pulses intact and symmetrical. Abdominal: Tender to palpation at right upper quadrant. No rebound tenderness. No guarding Extremities: Warm, dry. No Results & Data Results & Data Vital Signs (Past 12 Hours) Vital Signs Temp Pulse Pulse Resp BP BP Pulse Ox 08/08/22 14:48 76 18 159/74 H 95 08/08/22 12:26 98 08/08/22 12:18 36.3 C L 69 16 189/121 H 100 O2 Del Method 08/08/22 14:48 Room Air 08/08/22 12:26 Room Air 08/08/22 12:18 Room Air PG Care Time/CCT Total # of Minutes Spent Total Time Spent with Patient: Total time spent is greater than 50% in coordination of care (as documented) at patient's floor/unit and/or counseling patient: Coding Level of Care Code 41092 INT INP/OBS CARE 2/55MIN Diagnoses Acute cholecystitis K81.0 BRCA gene mutation positive Z15.01; Z15.09 Sleep apnea G47.30
--- NOTE | 2022-08-08 16:01 | Surgery Consultation ---
Date of Consultation August 08, 2022 Assessment & Plan (1) Abnormal gallbladder ultrasound: 81-year-old female with abdominal pain and distended gallbladder on imaging with no definitive evidence of cholelithiasis or cholecystitis. Recommend admission to medicine service HIDA scan Possible GI consultation versus further work-up depending on results Briefly discussed possibility of laparoscopic cholecystectomy and the risks of surgery Surgery will follow, call with questions or concerns (2) Abdominal pain: (3) Nausea: (4) Sleep apnea: (5) Hyperlipidemia: (6) BRCA gene mutation positive: History of Present Illness Reason for Consultation: Abdominal pain History of Present Illness 81-year-old female presented to the emergency department with abdominal pain. She was driving home from a trip on when she started developing right- sided abdominal pain. It is mostly in her lower right abdomen but does extend up along her flank. She has nausea but no vomiting. She has not eaten much over the past several days. She was seen in our emergency department over the weekend and a CT scan showed a distended gallbladder with no inflammation and some endometrial thickening. An ultrasound showed a distended gallbladder with no pericholecystic fluid, no gallbladder wall thickening. The common bile duct is slightly dilated. White blood cell count was marginally elevated and her bilirubin slightly elevated, however the rest of her labs were unremarkable. She was discharged to home and followed up with Dr. Bray with [facility] surgery this morning. She was in enough pain that he referred her to the emergency department for further evaluation. Prior tubal ligation and prior oophorectomies. Prior mastectomy for breast cancer, BRCA positive. No other abdominal surgeries. She has not had a bowel movement in several days. Not on any blood thinners. Allergies Allergy/AdvReac Type Severity Reaction Status Date / Time tetracycline Allergy Unknown BRUISING; Verified 08/08/22 15:37 rash on legs Home Medications Medication Instructions Recorded Confirmed Type atorvastatin 20 mg tablet 20 mg PO HS 05/15/19 08/08/22 History cholecalciferol (vitamin D3) 50 2,000 unit PO HS 05/15/19 08/08/22 History mcg (2,000 unit) tablet (Vitamin D3) coQ10 (ubiquinol) 100 mg capsule 100 mg PO HS 05/15/19 08/08/22 History denosumab 60 mg/mL subcutaneous 60 mg subcut UD 03/03/20 08/08/22 History syringe (Prolia) metoprolol succinate 25 mg 12.5 mg PO HS 07/05/20 08/08/22 History tablet,extended release 24 hr multivitamin (Daily Multi-Vitamin 1 tab PO DAILY 05/03/21 08/08/22 History tablet) calcium carb-Ca gluc 500 mg 2 tab PO DAILY 08/01/21 08/08/22 History calcium-magnesium ox-Mg gluc 250 mg tablet (Calcium Magnesium) tamoxifen 20 mg tablet 20 mg PO DAILY 10/12/21 08/08/22 History valacyclovir 500 mg tablet 500 mg PO BID PRN outbreak #30 tabs 10/12/21 08/08/22 Rx (Valtrex) ondansetron 4 mg disintegrating 4 mg PO Q6H PRN nausea and 08/05/22 08/08/22 Rx tablet vomiting #15 tabs mirabegron 50 mg tablet,extended 25 mg PO DAILY 08/08/22 08/08/22 History release 24 hr (Myrbetriq) Patient History Medical History (Updated 08/08/22 @ 15:59 by Pierce Shabazz DO, FACS) Abnormal gallbladder ultrasound BRCA gene mutation positive HSV-1 (herpes simplex virus 1) infection cold sores not at present Hypercholesterolemia Hyperlipidemia Malignant neoplasm of upper-outer quadrant of right breast in female, estrogen receptor positive (04/20/21) Mitral regurgitation Osteopenia Sleep apnea Urinary urgency Vitamin D deficiency Surgical History H/O colonoscopy H/O thumb surgery Right + Left History of biopsy (05/31/21) Breast - Right History of dental surgery dental implant History of lumpectomy of right breast (06/08/21) Right Breast Lumpectomy with Preoperative Needle Localization x2 and Right Axillary [place] Lymph Node Biopsy Dr. Taina Jones at [facility] History of ultrasound guided needle biopsy (04/20/21) Breast - Right Hx of BSO (bilateral salpingo-oophorectomy) Hx of tonsillectomy S/P right mastectomy S/P tubal ligation Family History Mother Breast cancer Sister Ovarian cancer Multiple sclerosis Aunt Ovarian cancer Maternal Uterine cancer Breast cancer Grandmother (Maternal) Cancer Father Heart disease Daughter Sarcoma Daughter BRCA gene mutation positive Social History Smoking Status: Never smoker Tobacco Type: Cigarettes packs per day: 0.4; Second Hand Exposure: Yes (as a child, parents smoked in home); Do You Dip or Chew Tobacco: No; Hx Alcohol Use: Yes Alcohol type: wine Alcohol Intake Frequency: Monthly or Less Hx Substance Use: No Preferred Language: Kazakh Communication Ability: Effective Visual Impairment: Limited Hearing Ability: Use of Hearing Aid Wool Puller Required: No Beliefs That Will Affect Care: None marital status: / Current Living Situation: Alone current occupational status: retired current occupation: Artist How many Children do You have: 2 How many Children do You have Comment: 1 living, 1 Feels Safe at Home: Yes Childhood Exposure to Second-Hand Smoke: Yes Diet: regular during the past year weight has: remained stable Dental Care, Regularly: Yes Assistive Devices: Glasses and Hearing Aid - Bilateral Review of Systems Review of Systems: All systems reviewed & are unremarkable except as noted in HPI & below Physical Exam Constitutional: WD/WN, vitals as above Respiratory: normal respiratory effort, lungs clear to auscultation Cardiovascular: RRR, no murmur, no edema Gastrointestinal (Abdomen): Percussion/Palpation: + abdomen tender (Mild tenderness to palpation, worse in right lower quadrant) and abdomen soft; no guarding and abdomen not rigid Results & Data Vital Signs (Past 12 Hours) Vital Signs Temp Pulse Pulse Resp BP BP Pulse Ox 08/08/22 14:48 76 18 159/74 H 95 08/08/22 12:26 98 08/08/22 12:18 36.3 C L 69 16 189/121 H 100 O2 Del Method 08/08/22 14:48 Room Air 08/08/22 12:26 Room Air 08/08/22 12:18 Room Air Laboratory Results Laboratory Results - last 24 hr 08/08/22 08/08/22 08/08/22 12:44 12:44 13:45 WBC 10.38 RBC 4.70 Hgb 15.5 Hct 41.3 MCV 87.9 MCH 33.0 MCHC 37.5 H RDW Std Deviation 36.8 RDW Coeff of Buzz 11.4 L Plt Count 175 MPV 11.5 Immature Gran % (Auto) 0.3 Neut % (Auto) 85.7 Lymph % (Auto) 8.2 [place] % (Auto) 5.1 Eos % (Auto) 0.3 Baso % (Auto) 0.4 Neut # (Auto) 8.90 H Lymph # (Auto) 0.85 L [place] # (Auto) 0.53 Eos # (Auto) 0.03 Baso # (Auto) 0.04 Immature Gran # (Auto) 0.03 Sodium 139 Potassium 4.0 Chloride 102 Carbon Dioxide 22 Anion Gap 15 H BUN 28 H Creatinine 1.10 Est Cr Clr Drug Dosing Not Reportable Est GFR ( Amer) 53.8 Est GFR (Non-Af Amer) 46.4 BUN/Creatinine Ratio 25.5 H Glucose 131 H Calcium 10.4 H Total Bilirubin 1.5 H AST 17 ALT 11 Alkaline Phosphatase 70 Troponin I High Sens 10.6 Total Protein 7.4 Albumin 4.4 Globulin 3.0 Albumin/Globulin Ratio 1.5 Lipase 18 Urine Color Yellow Urine Appearance Clear Urine pH 6.0 Ur Specific [place] 1.011 Urine Protein 1+ H Urine Glucose (UA) Negative Urine Ketones 2+ H Urine Blood Negative Urine Nitrite Negative Urine Bilirubin Negative Urine Urobilinogen Negative Ur Leukocyte Esterase 2+ H Urine WBC (Auto) 10-30 H Urine RBC (Auto) 0-4 U Hyaline Cast (Auto) 1-5 U Epithel Cells (Auto) >30 H Urine Bacteria (Auto) Negative SARS-CoV-2, RNA, NAAT 08/08/22 Unknown WBC RBC Hgb Hct MCV MCH MCHC RDW Std Deviation RDW Coeff of Buzz Plt Count MPV Immature Gran % (Auto) Neut % (Auto) Lymph % (Auto) [place] % (Auto) Eos % (Auto) Baso % (Auto) Neut # (Auto) Lymph # (Auto) [place] # (Auto) Eos # (Auto) Baso # (Auto) Immature Gran # (Auto) Sodium Potassium Chloride Carbon Dioxide Anion Gap BUN Creatinine Est Cr Clr Drug Dosing Est GFR ( Amer) Est GFR (Non-Af Amer) BUN/Creatinine Ratio Glucose Calcium Total Bilirubin AST ALT Alkaline Phosphatase Troponin I High Sens Total Protein Albumin Globulin Albumin/Globulin Ratio Lipase Urine Color Urine Appearance Urine pH Ur Specific [place] Urine Protein Urine Glucose (UA) Urine Ketones Urine Blood Urine Nitrite Urine Bilirubin Urine Urobilinogen Ur Leukocyte Esterase Urine WBC (Auto) Urine RBC (Auto) U Hyaline Cast (Auto) U Epithel Cells (Auto) Urine Bacteria (Auto) SARS-CoV-2, RNA, NAAT NEGATIVE Diagnostic Findings I personally reviewed and interpreted her CT scan from the other day as well as both right upper quadrant ultrasounds. I agree with the assessments of gallbladder distention with no gallbladder wall thickening, no cholelithiasis, and no pericholecystic fluid. US gallbladder CLINICAL HISTORY: Right upper quadrant pain. COMPARISON STUDY: CT of the abdomen and pelvis and right upper quadrant ultrasound August 05, 2022. FINDINGS: The gallbladder remains significantly distended. No gallstones are identified. A small amount of sludge within the gallbladder is noted. There is no gallbladder wall thickening. Positive sonographic Gonzalez sign was reported by the technologist. The site of pain was over the right mid to lower abdomen, overlying the distended gallbladder. Common bile duct is dilated, measuring 1.2 cm in caliber. No common bile duct calculi are identified. Pancreatic body is normal. Head and tail are obscured. There is no right hydronephrosis. No hepatic lesions are identified. IMPRESSION: 1. Persistent significant gallbladder distention. Small amount of sludge within the gallbladder. No gallstones. Positive sonographic Gonzalez sign. Acute cholecystitis cannot be excluded. A hepatobiliary scan could be obtained for further evaluation as indicated. 2. Mild biliary ductal dilatation could be correlated with obstructive liver function tests. PG Care Time/CCT Total # of Minutes Spent Total Time Spent with Patient: Total time spent is greater than 50% in coordination of care (as documented) at patient's floor/unit and/or counseling patient: Coding Level of Care Code 61477 OP VST NEW LOW 30-44 MIN Diagnoses Abnormal gallbladder ultrasound R93.2 Abdominal pain R10.9 Nausea R11.0 Sleep apnea G47.30 Hyperlipidemia E78.5 BRCA gene mutation positive Z15.01; Z15.09
[2022-08-08] MEDS ORDERED: ACETAMINOPHEN 1,000 MG/100 ML VIAL IV STA (16:05)
[2022-08-08] MEDS: LACTATED RINGER'S 1,000 ML IV SCH (16:19)
[2022-08-08] MEDS ORDERED: ONDANSETRON INJ 2 MG/ML 2 ML VIAL IV PRN (18:15)
[2022-08-08] MEDS ORDERED: HYDROmorphone INJ 1 MG/ML SYRINGE IV PRN (18:15)
[2022-08-08] MEDS ORDERED: HYDROmorphone INJ 0.5 MG/0.5 ML SYR IV PRN (18:15)
--- NOTE | 2022-08-08 18:25 | Electrocardiogram Report ---
Test Reason : Blood Pressure : / mmHG Vent. 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
[2022-08-08] MEDS ORDERED: Patient's HEIGHT Needed SCH (19:45)
[2022-08-08] MEDS ORDERED: Nursing to Pharmacy Communication SCH (20:00)
[2022-08-08] MEDS: TAMOXIFEN CITRATE 10 MG TABLET PO SCH (20:08)
[2022-08-08] MEDS: cefOXitin 2,000 MG in DEXTROSE 5% 50 ML IV SCH (20:59)
[2022-08-08] MEDS: METOPROLOL SUCC 25MG EXT REL TAB PO SCH (21:02)
[2022-08-08] MEDS: ACETAMINOPHEN 1,000 MG/100 ML VIAL IV PRN (23:28)
[2022-08-09] MEDS: LACTATED RINGER'S 1,000 ML IV SCH ×3 (01:39→20:14)
[2022-08-09] MEDS: cefOXitin 2,000 MG in DEXTROSE 5% 50 ML IV SCH ×3 (04:35→20:13)
--- NOTE | 2022-08-09 08:13 | Hospitalist Progress Note ---
Date of Service August 09, 2022 Assessment & Plan (1) Acute cholecystitis: Plan: Melia is an 81-year-old female who presents with right upper quadrant pain of several days concerning for acute cholecystitis ? Acute cholecystitis No leukocytosis, but did have left shift on admission. Along with RUQ pain, +murphys, anorexia, decreased BMs (last BM stated 3-4 days ago, poor PO intake) TB elevation 1.5, GB US w/ persistent significant gallbladder distention. Small amount of sludge within the gallbladder. No gallstones. Positive sonographic Gonzalez sign. Acute cholecystitis cannot be excluded. A hepatobiliary scan could be obtained for further evaluation as indicated. 2. Mild biliary ductal dilatation could be correlated with obstructive liver function tests. General surgery consulted -- appreciate assistance HIDA scan w/ Nonvisualization of gallbladder activity at 75 minutes. Mild radiotracer uptake within the gallbladder following Dilaudid administration. Therefore, the scintigraphic findings suggest chronic cholecystitis. Discussed w/ general surgery today and placed on OR schedule for tomorrow. WBC wnl, afebrile IVF w/ LR @ 125cc/hr -- will decrease to 100cc/hr Continues on Cefoxitin TB 1.3, all others wnl Pain control -- dc 1mg diluadid, increased frequency of 0.5mg dose to q2h and will monitor. Tylenol IV as needed Antiemetics prn DVT proph: SCDs, avoiding chemoproph given upcoming surgery. Ddimer checked given car trip ~17 days, negative 460, no evidence DVT on exam Will keep NPO unless surgery ok w/ clear liquid today/NPO at midnight -- check KUB given no BM/eval ileus prior to giving/entertaining any clear liquids Monitor labs on repeat Hypertension BP stable, elevations 2nd to pain Remains on metoprolol Monitor BP (2) BRCA gene mutation positive: Plan: Continue tamoxifen S/p mastectomy (3) Sleep apnea: Plan: CPAP nightly Admission and Anticipated Discharge Date Admission Date: August 08, 2022 Supervising Physician Co-Signing Physician Notes The patient was not seen by me. The chart was reviewed. Case discussed with PRISCILLA Patino. Agree with assessment and plan Subjective evaluated this afternoon, significant other at bedside. not yet seen by surgery but discussed I messaged them this morning regarding HIDA scans and they have added her to schedule for AM. Her pain is creeping back up on the right side -- notes dilaudid making her feel a little funny/off but effective but wearing off. Discussed will review medications, offer dose NOW, and decrease frequency. Does have +BS on exam, but no BM in about 4 days per patient. Prior removal of ovaries about 30 years ago, but no other abdominal surgery. Some nausea but no vomiting -- was having dry heaves prior to admission. long car ride, no pleuritic pain reported -- ddimer to labs added and wnl at 460. Questions/concerns addressed at this time. Physical Exam Physical Exam: General: WD/WN female with significant other at bedside, NAD but mildly uncomfortable appearing after HIDA scan HEENT: head normocephalic, atraumatic, mm slightly dry, trachea midline, HARD OF HEARING Resp: CTA, no w/c, slightly diminished in the bases, on room air CV: RRR, faint systolic murmur, no rub/gallop, no pitting edema/calf tenderness GI: +BS, soft, slightly distended, tender to palpation along right abdomen, no rigidity/guarding : no [place] MSK/Neuro: no focal deficit, no slurred speech Psych: alert, orientedx3 Results & Data Results & Data Vital Signs (Past 12 Hours) Vital Signs Temp Pulse Resp BP Pulse Ox O2 Del Method 08/09/22 07:47 36.8 C 71 18 169/80 H 95 Room Air 08/08/22 21:19 37 C 79 18 165/80 H 97 Room Air Laboratory Results 08/09/22 08/09/22 08/09/22 Range/Units 08:55 08:19 08:19 WBC (4.8-10.8) K/ul RBC (4.20-5.40) M/uL Hgb (12.0-16.0) g/dl Hct (37.0-47.0) % MCV (80.0-100.0) fL MCH (25.0-34.0) pg MCHC (32.0-36.0) g/dL RDW Std Deviation (36.4-46.3) fL RDW Coeff of Buzz (11.5-14.5) % Plt Count (130-400) K/uL MPV (9.4-12.4) fL Immature Gran % (Auto) % Neut % (Auto) % Lymph % (Auto) % [place] % (Auto) % Eos % (Auto) % Baso % (Auto) % Neut # (Auto) (1.40-6.50) K/uL Lymph # (Auto) (1.2-3.4) K/uL [place] # (Auto) (0.11-0.59) K/uL Eos # (Auto) (0-0.50) K/uL Baso # (Auto) (0-0.2) K/uL Immature Gran # (Auto) (0.01-0.20) K/uL D-Dimer 460 (0-500) ug/L FEU Sodium (136-145) mmol/L Potassium (3.5-5.1) mmol/L Chloride (98-107) mmol/L Carbon Dioxide (21-32) mmol/L Anion Gap (3-11) BUN (6-23) mg/dl Creatinine (0.6-1.2) mg/dl Est Cr Clr Drug Dosing ml/min Est GFR ( Amer) ml/min Est GFR (Non-Af Amer) ml/min BUN/Creatinine Ratio (10-20) Glucose (70-99(Fasting)) mg/dl Calcium (8.6-10.3) mg/dl Total Bilirubin 1.3 H (0.2-1.0) mg/dl Direct Bilirubin 0.2 (0-0.2) mg/dl AST 14 (13-39) U/L ALT 9 (7-52) U/L Alkaline Phosphatase 55 (34-104) U/L Total Protein 6.3 (6.0-8.3) gm/dl Albumin 3.7 (3.4-5.0) gm/dl 25-OH Vitamin D Total 35.9 (30-100) ng/ml Urine Color Urine Appearance (Clear) Urine pH (4.5-7.5) Ur Specific [place] (1.000-1.030) Urine Protein (Negative) Urine Glucose (UA) (Negative) Urine Ketones (Negative) Urine Blood (Negative) Urine Nitrite (Negative) Urine Bilirubin (Negative) Urine Urobilinogen (Negative) Ur Leukocyte Esterase (Negative) Urine WBC (Auto) (0-5) /hpf Urine RBC (Auto) (0-4) /hpf U Hyaline Cast (Auto) (0-5) /lpf U Epithel Cells (Auto) (0-5) /lpf Urine Bacteria (Auto) (Negative) SARS-CoV-2, RNA, NAAT (NEGATIVE) 08/09/22 08/09/22 08/08/22 Range/Units 07:38 07:38 Unknown WBC 8.97 (4.8-10.8) K/ul RBC 3.95 L (4.20-5.40) M/uL Hgb 12.7 (12.0-16.0) g/dl Hct 35.5 L (37.0-47.0) % MCV 89.9 (80.0-100.0) fL MCH 32.2 (25.0-34.0) pg MCHC 35.8 (32.0-36.0) g/dL RDW Std Deviation 37.2 (36.4-46.3) fL RDW Coeff of Buzz 11.4 L (11.5-14.5) % Plt Count 149 (130-400) K/uL MPV 11.2 (9.4-12.4) fL Immature Gran % (Auto) 0.2 % Neut % (Auto) 77.2 % Lymph % (Auto) 12.8 % [place] % (Auto) 8.6 % Eos % (Auto) 0.8 % Baso % (Auto) 0.4 % Neut # (Auto) 6.92 H (1.40-6.50) K/uL Lymph # (Auto) 1.15 L (1.2-3.4) K/uL [place] # (Auto) 0.77 H (0.11-0.59) K/uL Eos # (Auto) 0.07 (0-0.50) K/uL Baso # (Auto) 0.04 (0-0.2) K/uL Immature Gran # (Auto) 0.02 (0.01-0.20) K/uL D-Dimer (0-500) ug/L FEU Sodium 138 (136-145) mmol/L Potassium 3.5 (3.5-5.1) mmol/L Chloride 104 (98-107) mmol/L Carbon Dioxide 25 (21-32) mmol/L Anion Gap 9 (3-11) BUN 24 H (6-23) mg/dl Creatinine 0.88 (0.6-1.2) mg/dl Est Cr Clr Drug Dosing 37.5 ml/min Est GFR ( Amer) 70.4 ml/min Est GFR (Non-Af Amer) 60.8 ml/min BUN/Creatinine Ratio 27.3 H (10-20) Glucose 84 (70-99(Fasting)) mg/dl Calcium 8.6 (8.6-10.3) mg/dl Total Bilirubin (0.2-1.0) mg/dl Direct Bilirubin (0-0.2) mg/dl AST (13-39) U/L ALT (7-52) U/L Alkaline Phosphatase (34-104) U/L Total Protein (6.0-8.3) gm/dl Albumin (3.4-5.0) gm/dl 25-OH Vitamin D Total (30-100) ng/ml Urine Color Urine Appearance (Clear) Urine pH (4.5-7.5) Ur Specific [place] (1.000-1.030) Urine Protein (Negative) Urine Glucose (UA) (Negative) Urine Ketones (Negative) Urine Blood (Negative) Urine Nitrite (Negative) Urine Bilirubin (Negative) Urine Urobilinogen (Negative) Ur Leukocyte Esterase (Negative) Urine WBC (Auto) (0-5) /hpf Urine RBC (Auto) (0-4) /hpf U Hyaline Cast (Auto) (0-5) /lpf U Epithel Cells (Auto) (0-5) /lpf Urine Bacteria (Auto) (Negative) SARS-CoV-2, RNA, NAAT NEGATIVE (NEGATIVE) 08/08/22 Range/Units 13:45 WBC (4.8-10.8) K/ul RBC (4.20-5.40) M/uL Hgb (12.0-16.0) g/dl Hct (37.0-47.0) % MCV (80.0-100.0) fL MCH (25.0-34.0) pg MCHC (32.0-36.0) g/dL RDW Std Deviation (36.4-46.3) fL RDW Coeff of Buzz (11.5-14.5) % Plt Count (130-400) K/uL MPV (9.4-12.4) fL Immature Gran % (Auto) % Neut % (Auto) % Lymph % (Auto) % [place] % (Auto) % Eos % (Auto) % Baso % (Auto) % Neut # (Auto) (1.40-6.50) K/uL Lymph # (Auto) (1.2-3.4) K/uL [place] # (Auto) (0.11-0.59) K/uL Eos # (Auto) (0-0.50) K/uL Baso # (Auto) (0-0.2) K/uL Immature Gran # (Auto) (0.01-0.20) K/uL D-Dimer (0-500) ug/L FEU Sodium (136-145) mmol/L Potassium (3.5-5.1) mmol/L Chloride (98-107) mmol/L Carbon Dioxide (21-32) mmol/L Anion Gap (3-11) BUN (6-23) mg/dl Creatinine (0.6-1.2) mg/dl Est Cr Clr Drug Dosing ml/min Est GFR ( Amer) ml/min Est GFR (Non-Af Amer) ml/min BUN/Creatinine Ratio (10-20) Glucose (70-99(Fasting)) mg/dl Calcium (8.6-10.3) mg/dl Total Bilirubin (0.2-1.0) mg/dl Direct Bilirubin (0-0.2) mg/dl AST (13-39) U/L ALT (7-52) U/L Alkaline Phosphatase (34-104) U/L Total Protein (6.0-8.3) gm/dl Albumin (3.4-5.0) gm/dl 25-OH Vitamin D Total (30-100) ng/ml Urine Color Yellow Urine Appearance Clear (Clear) Urine pH 6.0 (4.5-7.5) Ur Specific [place] 1.011 (1.000-1.030) Urine Protein 1+ H (Negative) Urine Glucose (UA) Negative (Negative) Urine Ketones 2+ H (Negative) Urine Blood Negative (Negative) Urine Nitrite Negative (Negative) Urine Bilirubin Negative (Negative) Urine Urobilinogen Negative (Negative) Ur Leukocyte Esterase 2+ H (Negative) Urine WBC (Auto) 10-30 H (0-5) /hpf Urine RBC (Auto) 0-4 (0-4) /hpf U Hyaline Cast (Auto) 1-5 (0-5) /lpf U Epithel Cells (Auto) >30 H (0-5) /lpf Urine Bacteria (Auto) Negative (Negative) SARS-CoV-2, RNA, NAAT (NEGATIVE) Diagnostic Findings Gallbladder Ultrasound 08/08/22 12:39 US gallbladder CLINICAL HISTORY: Right upper quadrant pain. COMPARISON STUDY: CT of the abdomen and pelvis and right upper quadrant ultrasound August 05, 2022. FINDINGS: The gallbladder remains significantly distended. No gallstones are identified. A small amount of sludge within the gallbladder is noted. There is no gallbladder wall thickening. Positive sonographic Gonzalez sign was reported by the technologist. The site of pain was over the right mid to lower abdomen, overlying the distended gallbladder. Common bile duct is dilated, measuring 1.2 cm in caliber. No common bile duct calculi are identified. Pancreatic body is normal. Head and tail are obscured. There is no right hydronephrosis. No hepatic lesions are identified. IMPRESSION: 1. Persistent significant gallbladder distention. Small amount of sludge within the gallbladder. No gallstones. Positive sonographic Gonzalez sign. Acute cholecystitis cannot be excluded. A hepatobiliary scan could be obtained for further evaluation as indicated. 2. Mild biliary ductal dilatation could be correlated with obstructive liver function tests. ACT 112: Negative or not required by law. Electronically signed by: Dipak Villarreal M.D. 08/08/2022 2:54 PM KUB X-Ray 08/08/22 12:39 KUB HISTORY: Acute right upper quadrant abdominal pain ruq pain COMPARISON: CT 08/05/2022 FINDINGS: Nonobstructive bowel gas pattern. Moderate rectal fecal retention. Atherosclerosis of the aorta. 49 degrees levoscoliosis measured from T12-L4. No renal calculi. No ureteral calculi. No pneumoperitoneum or pneumatosis. No fracture. IMPRESSION: Nonobstructive bowel gas pattern. ACT 112: Negative or not required by law. The above report was generated using voice recognition software. It may contain grammatical, syntax or spelling errors. Electronically signed by: See Aguilar M.D. 08/08/2022 3:05 PM Hepatobiliary Scan Nuclear Medicine 08/09/22 06:55 NUCLEAR MEDICINE HEPATOBILIARY SCAN CLINICAL HISTORY: Abdominal pain and nausea. Abnormal ultrasound. COMPARISON: CT of the abdomen and pelvis August 05, 2022 and right upper quadrant ultrasound August 08, 2022. TECHNIQUE: 5.3 mCi of technetium 99m Choletec IV was injected at 10:03 AM on August 09, 2022. Immediately following injection, imaging of the abdomen was carried out for 60 minutes in the anterior projection. Visualization of gal lbladder activity was difficult given close proximity to the duodenum. The patient was given 1 mg of Dilaudid IV and delayed imaging was performed with a 130 minute image. FINDINGS: Hepatic uptake of radiotracer is prompt and homogeneous. Activity is identified within the common bile duct and small bowel at 10 minutes. There is no definite gallbladder activity at 75 minutes. Following injection of Dilaudid, note was made of faint radiotracer uptake within the gallbladder. Therefore, the findings suggest chronic cholecystitis. IMPRESSION: Nonvisualization of gallbladder activity at 75 minutes. Mild radiotracer uptake within the gallbladder following Dilaudid administration. Therefore, the scintigraphic findings suggest chronic cholecystitis. ACT 112: Negative or not required by law. Electronically signed by: Dipak Villarreal M.D. 08/09/2022 12:25 PM PG Care Time/CCT Total # of Minutes Spent Total Time Spent with Patient: Total time spent is greater than 50% in coordination of care (as documented) at patient's floor/unit and/or counseling patient: Coding Level of Care Code 20793 SUB INP/OBS CARE 3/50MIN Diagnoses Acute cholecystitis K81.0 BRCA gene mutation positive Z15.01; Z15.09 Sleep apnea G47.30
[2022-08-09 08:26] LABS: Basophils # (auto) 0.04 K/uL (0-0.2); Basophils % (auto) 0.4 %; Eosinophils # (auto) 0.07 K/uL (0-0.50); Eosinophils % (auto) 0.8 %; Hematocrit (blood only) 35.5 % (37.0-47.0); Hemoglobin 12.7 g/dl (12.0-16.0); Immature Granulocytes # (auto) 0.02 K/uL (0.01-0.20); Immature Granulocytes % (auto) 0.2 %; Lymphocytes # (auto) 1.15 K/uL (1.2-3.4); Lymphocytes % (auto) 12.8 %; Mean Corpuscular Hemoglobin 32.2 pg (25.0-34.0); Mean Corpuscular Hgb Conc 35.8 g/dL (32.0-36.0); Mean Corpuscular Volume 89.9 fL (80.0-100.0); Mean Platelet Volume 11.2 fL (9.4-12.4); Monocytes # (auto) 0.77 K/uL (0.11-0.59); Monocytes % (auto) 8.6 %; Neutrophils # (auto) 6.92 K/uL (1.40-6.50); Neutrophils % (auto) 77.2 %; Platelet Count 149 K/uL (130-400); RDW Coefficient of Variation 11.4 % (11.5-14.5); RDW Standard Deviation 37.2 fL (36.4-46.3); Red Blood Count 3.95 M/uL (4.20-5.40); White Blood Count 8.97 K/ul (4.8-10.8)
[2022-08-09] MEDS: ACETAMINOPHEN 1,000 MG/100 ML VIAL IV PRN ×2 (08:26→18:02)
[2022-08-09 08:34] LABS: BUN Creatinine Ratio 27.3 (10-20); Calcium 8.6 mg/dl (8.6-10.3); Creatinine Clr Calc Pharmacy 37.5 ml/min; Est GFR (African American) 70.4 ml/min; Est GFR (Non-African American) 60.8 ml/min; Potassium 3.5 mmol/L (3.5-5.1)
[2022-08-09 08:53] LABS: Albumin Level 3.7 gm/dl (3.4-5.0); Bilirubin Direct 0.2 mg/dl (0-0.2); Bilirubin,Total 1.3 mg/dl (0.2-1.0); Total Protein 6.3 gm/dl (6.0-8.3)
[2022-08-09 09:37] LABS: D Dimer 460 ug/L FEU (0-500)
[2022-08-09] MEDS: TAMOXIFEN CITRATE 10 MG TABLET PO SCH (09:37)
--- NOTE | 2022-08-09 12:27 | Nuclear Medicine Report ---
NUCLEAR MEDICINE HEPATOBILIARY SCAN CLINICAL HISTORY: Abdominal pain and nausea. Abnormal ultrasound. COMPARISON: CT of the abdomen and pelvis August 05, 2022 and right upper quadrant ultrasound August 08, 2022. TECHNIQUE: 5.3 mCi of technetium 99m Choletec IV was injected at 10:03 AM on August 09, 2022. Immedia tely following injection, imaging of the abdomen was carried out for 60 minutes in the anterior proje ction. Visualization of gallbladder activity was difficult given close proximity to the duodenum. The patient was given 1 mg of Dilaudid IV and delayed imaging was performed with a 130 minute image. FINDINGS: Hepatic uptake of radiotracer is prompt and homogeneous. Activity is identified within the common bile duct and small bowel at 10 minutes. There is no definite gallbladder activity at 75 momo nuvia. Following injection of Dilaudid, note was made of faint radiotracer uptake within the gallbladde r. Therefore, the findings suggest chronic cholecystitis. IMPRESSION: Nonvisualization of gallbladder activity at 75 minutes. Mild radiotracer uptake within t he gallbladder following Dilaudid administration. Therefore, the scintigraphic findings suggest chron ic cholecystitis. ACT 112: Negative or not required by law. Electronically signed by: Dipak Villarreal M.D. 08/09/2022 12:25 PM
[2022-08-09] MEDS ORDERED: HYDROmorphone INJ 0.5 MG/0.5 ML SYR IV STA (13:20)
--- NOTE | 2022-08-09 14:27 | XRay Report ---
XR KUB/Abdomen 1 view CLINICAL HISTORY: abd pain, eval ileus vs obstruction TECHNIQUE: 1 view of the abdomen was obtained. Comparison: Comparison is made to abdomen radiographs 08/08/2022 FINDINGS: Lung bases are unremarkable. Degenerative changes are seen in the visualized skeleton. Levoscoliosis is seen. The bowel gas pattern is nonobstructive. A moderate amount of stool is noted within the larg e bowel. IMPRESSION: Nonobstructive bowel gas pattern. ACT 112: Negative or not required by law. Electronically signed by: Carlos Lockett M.D. 08/09/2022 2:26 PM
--- NOTE | 2022-08-09 14:47 | Surgery Progress Note ---
Date of Service August 09, 2022 Assessment & Plan (1) Chronic cholecystitis without calculus: Plan: HIDA confirm chronic cholecystitis plan for robotic assisted laparoscopic cholecystectomy with possible cholangiogram tomorrow in OR risks discussed to include but not limited to bleeding, infection, retained stone, bile leak, open surgery, damage to surrounding structures including bile duct, need for future or more extensive surgery, failure to treat symptoms, and risks of anesthesia. Consent signed and witnessed May have clear liquids tonight, n.p.o. after midnight Hold any anticoagulation after midnight Admission and Anticipated Discharge Date Admission Date: August 08, 2022 Subjective Admitted for abdominal pain and possible cholecystitis. No issues overnight. HIDA scan performed today and confirmed nonfilling of the gallbladder consistent with a chronic cholecystitis. Physical Exam Constitutional: WD/WN, vitals as above Respiratory: normal respiratory effort, lungs clear to auscultation Cardiovascular: RRR, no murmur, no edema Gastrointestinal (Abdomen): Percussion/Palpation: + abdomen tender (Mild tenderness to palpation, worse in right lower quadrant) and abdomen soft; no guarding and abdomen not rigid Results & Data Vital Signs (Past 12 Hours) Vital Signs Temp Pulse Resp BP Pulse Ox O2 Del Method 08/09/22 07:47 36.8 C 71 18 169/80 H 95 Room Air Diagnostic Findings NUCLEAR MEDICINE HEPATOBILIARY SCAN CLINICAL HISTORY: Abdominal pain and nausea. Abnormal ultrasound. COMPARISON: CT of the abdomen and pelvis August 05, 2022 and right upper quadrant ultrasound August 08, 2022. TECHNIQUE: 5.3 mCi of technetium 99m Choletec IV was injected at 10:03 AM on August 09, 2022. Immediately following injection, imaging of the abdomen was carried out for 60 minutes in the anterior projection. Visualization of gallbladder activity was difficult given close proximity to the duodenum. The patient was given 1 mg of Dilaudid IV and delayed imaging was performed with a 130 minute image. FINDINGS: Hepatic uptake of radiotracer is prompt and homogeneous. Activity is identified within the common bile duct and small bowel at 10 minutes. There is no definite gallbladder activity at 75 minutes. Following injection of Dilaudid, note was made of faint radiotracer uptake within the gallbladder. Therefore, the findings suggest chronic cholecystitis. IMPRESSION: Nonvisualization of gallbladder activity at 75 minutes. Mild radiotracer uptake within the gallbladder following Dilaudid administration. Therefore, the scintigraphic findings suggest chronic cholecystitis. PG Care Time/CCT Total # of Minutes Spent Total Time Spent with Patient: Total time spent is greater than 50% in coordination of care (as documented) at patient's floor/unit and/or counseling patient: Coding Level of Care Code 03600 SUB INP/OBS CARE 2/35MIN Diagnoses Chronic cholecystitis without calculus K81.1
[2022-08-09] MEDS ORDERED: bisacodyL 10 MG SUPP PR PRN (15:10)
[2022-08-09] MEDS: HYDROmorphone INJ 0.5 MG/0.5 ML SYR IV PRN ×4 (16:38→23:53)
[2022-08-09] MEDS: METOPROLOL SUCC 25MG EXT REL TAB PO SCH (20:16)
[2022-08-10] MEDS: HYDROmorphone INJ 0.5 MG/0.5 ML SYR IV PRN ×3 (02:41→10:35)
[2022-08-10] MEDS: cefOXitin 2,000 MG in DEXTROSE 5% 50 ML IV SCH ×3 (03:37→20:18)
[2022-08-10] MEDS: LACTATED RINGER'S 1,000 ML IV SCH ×2 (05:37→16:33)
--- NOTE | 2022-08-10 08:21 | Hospitalist Progress Note ---
Date of Service August 10, 2022 Assessment & Plan (1) Acute cholecystitis: Plan: Melia is an 81-year-old female who presents with right upper quadrant pain of several days concerning for acute cholecystitis ? Acute cholecystitis No leukocytosis, but did have left shift on admission. Along with RUQ pain, +murphys, anorexia, decreased BMs (last BM stated 3-4 days ago, poor PO intake) TB elevation 1.5, GB US w/ persistent significant gallbladder distention. Small amount of sludge within the gallbladder. No gallstones. Positive sonographic Gonzalez sign. Acute cholecystitis cannot be excluded. A hepatobiliary scan could be obtained for further evaluation as indicated. 2. Mild biliary ductal dilatation could be correlated with obstructive liver function tests. General surgery consulted -- appreciate assistance HIDA scan w/ Nonvisualization of gallbladder activity at 75 minutes. Mild radiotracer uptake within the gallbladder following Dilaudid administration. Therefore, the scintigraphic findings suggest chronic cholecystitis. NPO for surgery today Continues on cefoxitin IV WBC wnl, afebrile IVF LR @ 100cc/hr K 3.4, IV replacement ordered. Mag 1.6, IV replacement ordered Monitor labs on repeat/electrolyte replacement as indicated Pain control -- 0.5 dilaudid q2h as needed, tylenol IV Antiemetics prn Bowel regimen -- suppository if no BM. Aggressive regimen following surgery. KUB w/o obstruction or ileus DVT proph: SCDs for now, chemo proph following surgery when ok w/ surgery (2) HTN (hypertension), benign: Plan: BP 156/73, stable Elevations 2nd to pain -- improved w/ change in pain regimen as above Remains on metoprolol Monitor BP (3) BRCA gene mutation positive: Plan: Continue tamoxifen S/p mastectomy ~2mo ago (4) Sleep apnea: Plan: reported did not get good sleep last night CPAP-- not prior ordered and will order for tonight Plan NPO for OR today with iris Soares lianet/possible cholangiogram Admission and Anticipated Discharge Date Admission Date: August 08, 2022 Supervising Physician Co-Signing Physician Notes The patient was not seen by me. The chart was reviewed. Case discussed with PRISCILLA Patino. Agree with assessment and plan Subjective evaluated this morning, doing better - pain better controlled with decreased dose dilaudid but increased frequency. Still not passing gas as reported but +BS on exam and discussed bowel regimen. Can attempt suppository if no BM. Plannin for surgery this afternoon. No significant nausea. No vomiting. No fever/chill, chest pain, shortness of breath. Does note issues with bleeding -- will monitor once starting chemoproph following surgery. Questions/concerns addressed at this time. Physical Exam Physical Exam: General: WD/WN female laying in bed, NAD HEENT: head normocephalic, atraumatic, mm improved, trachea midline, HARD OF HEARING Resp: CTA, no w/c, slightly diminished in the bases, on room air CV: RRR, faint systolic murmur, no rub/gallop, no pitting edema/calf tenderness GI: +BS, soft, slightly distended, decreased tenderness to palpation along right abdomen (worse RLQ>RUQ), no rigidity/guarding : no [place] MSK/Neuro: no focal deficit, no slurred speech Psych: alert, orientedx3 Results & Data Results & Data Vital Signs (Past 12 Hours) Vital Signs Temp Pulse Resp BP Pulse Ox O2 Del Method 08/10/22 07:15 36.9 C 72 18 156/73 H 94 Room Air Laboratory Results 08/10/22 08/10/22 08/09/22 Range/Units 07:50 07:50 08:55 WBC 8.68 (4.8-10.8) K/ul RBC 3.72 L (4.20-5.40) M/uL Hgb 11.9 L (12.0-16.0) g/dl Hct 32.6 L (37.0-47.0) % MCV 87.6 (80.0-100.0) fL MCH 32.0 (25.0-34.0) pg MCHC 36.5 H (32.0-36.0) g/dL RDW Std Deviation 36.1 L (36.4-46.3) fL RDW Coeff of Buzz 11.3 L (11.5-14.5) % Plt Count 151 (130-400) K/uL MPV 11.3 (9.4-12.4) fL Immature Gran % (Auto) 0.3 % Neut % (Auto) 66.8 % Lymph % (Auto) 18.2 % [place] % (Auto) 10.5 % Eos % (Auto) 3.5 % Baso % (Auto) 0.7 % Neut # (Auto) 5.80 (1.40-6.50) K/uL Lymph # (Auto) 1.58 (1.2-3.4) K/uL [place] # (Auto) 0.91 H (0.11-0.59) K/uL Eos # (Auto) 0.30 (0-0.50) K/uL Baso # (Auto) 0.06 (0-0.2) K/uL Immature Gran # (Auto) 0.03 (0.01-0.20) K/uL D-Dimer 460 (0-500) ug/L FEU Sodium 135 L (136-145) mmol/L Potassium 3.4 L (3.5-5.1) mmol/L Chloride 102 (98-107) mmol/L Carbon Dioxide 27 (21-32) mmol/L Anion Gap 6 (3-11) BUN 16 (6-23) mg/dl Creatinine 0.68 (0.6-1.2) mg/dl Est Cr Clr Drug Dosing 48.6 ml/min Est GFR ( Amer) 93.8 ml/min Est GFR (Non-Af Amer) 80.9 ml/min BUN/Creatinine Ratio 23.5 H (10-20) Glucose 81 (70-99(Fasting)) mg/dl Calcium 8.0 L (8.6-10.3) mg/dl Magnesium 1.6 L (1.7-2.4) mg/dl Total Bilirubin 1.0 (0.2-1.0) mg/dl AST 14 (13-39) U/L ALT 7 (7-52) U/L Alkaline Phosphatase 45 (34-104) U/L Total Protein 5.4 L (6.0-8.3) gm/dl Albumin 3.2 L (3.4-5.0) gm/dl Globulin 2.2 L (2.5-4.0) gm/dl Albumin/Globulin Ratio 1.5 (0.9-2) Diagnostic Findings KUB X-Ray 08/09/22 13:18 XR KUB/Abdomen 1 view CLINICAL HISTORY: abd pain, eval ileus vs obstruction TECHNIQUE: 1 view of the abdomen was obtained. Comparison: Comparison is made to abdomen radiographs 08/08/2022 FINDINGS: Lung bases are unremarkable. Degenerative changes are seen in the visualized skeleton. Levoscoliosis is seen. The bowel gas pattern is nonobstructive. A moderate amount of stool is noted within the large bowel. IMPRESSION: Nonobstructive bowel gas pattern. ACT 112: Negative or not required by law. Electronically signed by: Carlos Lockett M.D. 08/09/2022 2:26 PM PG Care Time/CCT Total # of Minutes Spent Total Time Spent with Patient: Total time spent is greater than 50% in coordination of care (as documented) at patient's floor/unit and/or counseling patient: Coding Level of Care Code 19497 SUB INP/OBS CARE 350MIN Diagnoses Acute cholecystitis K81.0 HTN (hypertension), benign I10 BRCA gene mutation positive Z15.01; Z15.09 Sleep apnea G47.30
[2022-08-10 08:31] LABS: Basophils # (auto) 0.06 K/uL (0-0.2); Basophils % (auto) 0.7 %; Eosinophils % (auto) 3.5 %; Hematocrit (blood only) 32.6 % (37.0-47.0); Hemoglobin 11.9 g/dl (12.0-16.0); Immature Granulocytes # (auto) 0.03 K/uL (0.01-0.20); Immature Granulocytes % (auto) 0.3 %; Lymphocytes # (auto) 1.58 K/uL (1.2-3.4); Lymphocytes % (auto) 18.2 %; Mean Corpuscular Hgb Conc 36.5 g/dL (32.0-36.0); Mean Corpuscular Volume 87.6 fL (80.0-100.0); Mean Platelet Volume 11.3 fL (9.4-12.4); Monocytes # (auto) 0.91 K/uL (0.11-0.59); Monocytes % (auto) 10.5 %; Neutrophils % (auto) 66.8 %; Platelet Count 151 K/uL (130-400); RDW Coefficient of Variation 11.3 % (11.5-14.5); RDW Standard Deviation 36.1 fL (36.4-46.3); Red Blood Count 3.72 M/uL (4.20-5.40); White Blood Count 8.68 K/ul (4.8-10.8)
[2022-08-10 08:52] LABS: Albumin Globulin Ratio 1.5 (0.9-2); Albumin Level 3.2 gm/dl (3.4-5.0); BUN Creatinine Ratio 23.5 (10-20); Creatinine Clr Calc Pharmacy 48.6 ml/min; Est GFR (African American) 93.8 ml/min; Est GFR (Non-African American) 80.9 ml/min; Globulin 2.2 gm/dl (2.5-4.0); Magnesium 1.6 mg/dl (1.7-2.4); Potassium 3.4 mmol/L (3.5-5.1); Total Protein 5.4 gm/dl (6.0-8.3)
[2022-08-10] MEDS: POTASSIUM CHLORIDE / WTR 10 MEQ/100 ML PLCT IV SCH ×2 (10:35→11:50)
[2022-08-10] MEDS: TAMOXIFEN CITRATE 10 MG TABLET PO SCH (10:36)
[2022-08-10] MEDS: MAGNESIUM SULFATE / D5W 1 GM/100 ML BAG IV SCH ×2 (10:36→16:32)
--- NOTE | 2022-08-10 11:38 | Anesthesiology Consultation ---
Date of Service August 10, 2022 Assessment & Plan Chart Review Chart Review: Acceptable Risk for Surgery and Patient NOT seen in Pre Admission Testing History Surgery Operation Date: 08/10/22 12:40 Proposed Procedures p Robotic Laparoscopic Cholecystectomy, Possible Cholangiogram - Pierce Shabazz DO, FACS Height/Weight Height: 5 ft 4 in Weight: 49.1 kg Allergies Allergy/AdvReac Type Severity Reaction Status Date / Time tetracycline Allergy Unknown BRUISING; Verified 08/08/22 15:37 rash on legs Medications Home Medications Medication Instructions Recorded Confirmed Last Taken atorvastatin 20 mg tablet 20 mg PO HS 05/15/19 08/08/22 11/03/20 cholecalciferol (vitamin D3) 50 2,000 unit PO HS 05/15/19 08/08/22 11/03/20 mcg (2,000 unit) tablet (Vitamin D3) coQ10 (ubiquinol) 100 mg capsule 100 mg PO HS 05/15/19 08/08/22 11/03/20 denosumab 60 mg/mL subcutaneous 60 mg subcut UD 03/03/20 08/08/22 11/03/20 syringe (Prolia) metoprolol succinate 25 mg 12.5 mg PO HS 07/05/20 08/08/22 11/03/20 tablet,extended release 24 hr multivitamin (Daily Multi-Vitamin 1 tab PO DAILY 05/03/21 08/08/22 Unknown tablet) calcium carb-Ca gluc 500 mg 2 tab PO DAILY 08/01/21 08/08/22 Unknown calcium-magnesium ox-Mg gluc 250 mg tablet (Calcium Magnesium) tamoxifen 20 mg tablet 20 mg PO DAILY 10/12/21 08/08/22 08/05/22 10:00 valacyclovir 500 mg tablet 500 mg PO BID PRN outbreak #30 tabs 10/12/21 08/08/22 Unknown (Valtrex) ondansetron 4 mg disintegrating 4 mg PO Q6H PRN nausea and 08/05/22 08/08/22 Unknown tablet vomiting #15 tabs mirabegron 50 mg tablet,extended 25 mg PO DAILY 08/08/22 08/08/22 Unknown release 24 hr (Myrbetriq) Active Medications Generic Name Dose Route Start Last Admin Trade Name Freq PRN Reason Stop Dose Admin Hydromorphone HCl 0.5 mg 08/09/22 13:20 08/10/22 10:35 Hydromorphone Inj 0.5 Mg/0.5 Ml Syr IV 08/22/22 18:14 0.5 mg Q2H PRN Administration moderate to severe pain Lactated Ringer's 1,000 mls @ 100 mls/hr 08/08/22 16:15 08/10/22 05:37 Lr IV 09/07/22 16:14 100 mls/hr .Q10H CHAVEZ Administration Cefoxitin Sodium 2,000 mg/ 60 mls @ 100 mls/hr 08/08/22 20:00 08/10/22 05:08 Dextrose IV 08/18/22 19:59 Infused Q8H CHAVEZ Infusion Protocol Acetaminophen 1,000 mg in 100 mls @ 400 mls/hr 08/08/22 18:15 08/09/22 18:19 Ofirmev IV 08/11/22 18:14 Infused Q8H PRN Infusion Pain 1st line Magnesium Sulfate/Dextrose 1 gm in 100 mls @ 50 mls/hr 08/10/22 09:00 08/10/22 10:36 Magnesium Sulfate / D5w IV 08/10/22 12:59 50 mls/hr Q2H CHAVEZ Administration Metoprolol Succinate 12.5 mg 08/08/22 21:00 08/09/22 20:16 Metoprolol Succ 25mg Ext Rel Tab PO 09/07/22 20:59 12.5 mg HS CHAVEZ Administration Tamoxifen Citrate 20 mg 08/08/22 18:15 08/10/22 10:36 Tamoxifen Citrate 10 Mg Tablet PO 09/07/22 18:14 20 mg DAILY CHAVEZ Administration Past Medical History Medical History Abnormal gallbladder ultrasound BRCA gene mutation positive Chronic cholecystitis without calculus HSV-1 (herpes simplex virus 1) infection cold sores not at present Hypercholesterolemia Hyperlipidemia Malignant neoplasm of upper-outer quadrant of right breast in female, estrogen receptor positive (04/20/21) Mitral regurgitation Osteopenia Sleep apnea Urinary urgency Vitamin D deficiency Past Family History Family History Mother Breast cancer Sister Ovarian cancer Multiple sclerosis Aunt Ovarian cancer Maternal Uterine cancer Breast cancer Grandmother (Maternal) Cancer Father Heart disease Daughter Sarcoma Daughter BRCA gene mutation positive Past Surgical History Surgical History H/O colonoscopy H/O thumb surgery Right + Left History of biopsy (05/31/21) Breast - Right History of dental surgery dental implant History of lumpectomy of right breast (06/08/21) Right Breast Lumpectomy with Preoperative Needle Localization x2 and Right Axillary Superior Lymph Node Biopsy Dr. Taina Jones at [facility] [place] History of ultrasound guided needle biopsy (04/20/21) Breast - Right Hx of BSO (bilateral salpingo-oophorectomy) Hx of tonsillectomy S/P right mastectomy S/P tubal ligation Social History Smoking Status: Former smoker tobacco type: cigarettes Do You Dip or Chew Tobacco: No Hx Alcohol Use: Yes Alcohol type: wine alcohol intake frequency: 3 or more drinks per day Hx Substance Use: No substance use type: does not use Physical Exam Vital Signs Last Vital Signs Temp 36.9 C 08/10/22 07:15 Pulse 72 08/10/22 07:15 Resp 18 08/10/22 07:15 BP 156/73 H 08/10/22 07:15 Pulse Ox 94 08/10/22 07:15 O2 Del Method Room Air 08/10/22 07:15 Testing Laboratory Results 08/10/22 07:50 08/10/22 07:50 Urine Color Yellow 08/08/22 13:45 Urine Appearance Clear (Clear) 08/08/22 13:45 Urine pH 6.0 (4.5-7.5) 08/08/22 13:45 Ur Specific [place] 1.011 (1.000-1.030) 08/08/22 13:45 Urine Protein 1+ (Negative) H 08/08/22 13:45 Urine Glucose (UA) Negative (Negative) 08/08/22 13:45 Urine Ketones 2+ (Negative) H 08/08/22 13:45 Urine Nitrite Negative (Negative) 08/08/22 13:45 Ur Leukocyte Esterase 2+ (Negative) H 08/08/22 13:45 Urine WBC (Auto) 10-30 /hpf (0-5) H 08/08/22 13:45 Urine RBC (Auto) 0-4 /hpf (0-4) 08/08/22 13:45 U Hyaline Cast (Auto) 1-5 /lpf (0-5) 08/08/22 13:45 U Epithel Cells (Auto) >30 /lpf (0-5) H 08/08/22 13:45 Urine Bacteria (Auto) Negative (Negative) 08/08/22 13:45 08/08/22 13:45 Urine Culture - Final Urine,Clean Catch Three types or organisms present, all moderate counts probable skin yumiko. No further identifications or sensitivities to follow.
[2022-08-10] MEDS ORDERED: fentaNYL citrate PF 100 MCG/2 ML VIAL ONE ×2 (12:21→14:38)
--- NOTE | 2022-08-10 13:04 | Surgery Progress Note ---
Date of Service August 10, 2022 Assessment & Plan (1) Chronic cholecystitis without calculus: Plan: Chronic cholecystitis plan for robotic assisted laparoscopic cholecystectomy with possible cholangiogram today risks discussed to include but not limited to bleeding, infection, retained stone, bile leak, open surgery, damage to surrounding structures including bile duct, need for future or more extensive surgery, failure to treat symptoms, and risks of anesthesia. Admission and Anticipated Discharge Date Admission Date: August 08, 2022 Subjective Acute on chronic cholecystitis confirmed by HIDA yesterday, n.p.o. for or today. No changes overnight. Physical Exam Constitutional: WD/WN, vitals as above Respiratory: normal respiratory effort, lungs clear to auscultation Cardiovascular: RRR, no murmur, no edema Gastrointestinal (Abdomen): Percussion/Palpation: + abdomen tender (Mild tenderness to palpation, worse in right lower quadrant) and abdomen soft; no guarding and abdomen not rigid Results & Data Vital Signs (Past 12 Hours) Vital Signs Temp Pulse Resp BP Pulse Ox O2 Del Method 08/10/22 07:15 36.9 C 72 18 156/73 H 94 Room Air Diagnostic Findings NUCLEAR MEDICINE HEPATOBILIARY SCAN CLINICAL HISTORY: Abdominal pain and nausea. Abnormal ultrasound. COMPARISON: CT of the abdomen and pelvis August 05, 2022 and right upper quadrant ultrasound August 08, 2022. TECHNIQUE: 5.3 mCi of technetium 99m Choletec IV was injected at 10:03 AM on August 09, 2022. Immediately following injection, imaging of the abdomen was carried out for 60 minutes in the anterior projection. Visualization of gallbladder activity was difficult given close proximity to the duodenum. The patient was given 1 mg of Dilaudid IV and delayed imaging was performed with a 130 minute image. FINDINGS: Hepatic uptake of radiotracer is prompt and homogeneous. Activity is identified within the common bile duct and small bowel at 10 minutes. There is no definite gallbladder activity at 75 minutes. Following injection of Dilaudid, note was made of faint radiotracer uptake within the gallbladder. Therefore, the findings suggest chronic cholecystitis. IMPRESSION: Nonvisualization of gallbladder activity at 75 minutes. Mild radiotracer uptake within the gallbladder following Dilaudid administration. Therefore, the scintigraphic findings suggest chronic cholecystitis. PG Care Time/CCT Total # of Minutes Spent Total Time Spent with Patient: Total time spent is greater than 50% in coordination of care (as documented) at patient's floor/unit and/or counseling patient: Coding Level of Care Code 95909 SUB INP/OBS CARE Diagnoses Chronic cholecystitis without calculus K81.1
[2022-08-10] MEDS ORDERED: BUPIVACAINE 0.5 % 5 MG/1 ML MPF 30ML VIAL ONE (13:18)
[2022-08-10] MEDS ORDERED: ONDANSETRON INJ 2 MG/ML 2 ML VIAL IV PRN (14:32)
[2022-08-10] MEDS ORDERED: fentaNYL citrate PF 100 MCG/2 ML VIAL IV PRN (14:32)
[2022-08-10] MEDS ORDERED: ATROPINE SULFATE 0.1 MG/ML 10ML SYR IV PRN (14:32)
[2022-08-10] MEDS ORDERED: HYDROmorphone INJ 2 MG/ML SYR/VIAL IV PRN (14:32)
[2022-08-10] MEDS ORDERED: ePHEDrine sulfate 50 MG/ML AMP IV PRN (14:32)
[2022-08-10] MEDS ORDERED: ePHEDrine sulfate 50 MG/ML AMP ONE (14:50)
[2022-08-10] MEDS ORDERED: ONDANSETRON INJ 2 MG/ML 2 ML VIAL ONE ×2 (14:50→15:29)
[2022-08-10] MEDS ORDERED: DEXAMETHASONE SOD INJ 4 MG/ML VIAL ONE (14:50)
[2022-08-10] MEDS ORDERED: LIDOCAINE 2% 2 ML VIAL/AMP(20MG/ML) INFIL ONE (14:50)
[2022-08-10] MEDS ORDERED: ROCURONIUM BROMIDE 10 MG/ML 5 ML VIAL IV ONE (14:50)
[2022-08-10] MEDS ORDERED: PROPOFOL IV EMULSION 10 MG/ML 20 ML VIAL IV ONE (14:50)
--- NOTE | 2022-08-10 15:28 | Operative Report ---
PG Post Operative Report Pre & Post Diagnosis Operation Date: 08/10/22 12:40 Pre-Op Diagnosis: Chronic cholecystitis without calculus Post-Op Diagnosis: Chronic cholecystitis without calculus I identified the patient and participated in the time-out.: Yes Procedure Operation Date: 08/10/22 12:40 Actual Procedures p Robotic Laparoscopic Cholecystectomy(Not Applicable) - Pierce Shabazz DO, HEMAL Surgeon Pierce Shabazz DO, HEMAL [place] Vessel Pilot Terri Szymanski Estimated Blood Loss 15 Findings Consistent with Post-Op Diagnosis Distended and mildly inflamed gallbladder. Critical view of safety obtained, c ystic duct and artery doubly clipped and divided. Good hemostasis. Specimens Gallbladder Anesthesia Type General Complications none Disposition Accompanied Patient To Recovery: No Disposition: Recovery Room Indications 81-year-old female presented with abdominal pain and distended gallbladder with no stones or evidence of cholecystitis on imaging. She was admitted and a HIDA scan was ordered which revealed nonfilling of the gallbladder consistent with chronic cholecystitis. Plan for robotic assisted laparoscopic cholecystectomy with possible cholangiogram. The risks of the procedure were discussed, all questions were answered, and the patient agreed to proceed with surgery as planned. Description of Procedure The patient was properly identified, consented, and taken to the operating room where she was placed in the supine position. 2.5 mg of indocyanine green were administered IV approximately 45 min prior to the surgery. General endotracheal anesthesia was induced. SCDs and a safety belt were placed. Preoperative antibiotics were administered. The patient's abdomen was prepped and draped in the standard sterile fashion. A surgical timeout was performed and all parties were in agreement that this was the correct patient and procedure to be performed and we continued as planned. An incision was made just above the umbilicus and to the right of midline. Veress needle was inserted and saline drop test confirmed entry to the abdomen. The abdomen was insufflated with carbon dioxide which the patient tolerated incident. Veress needle was removed and the abdomen is entered using the Optiview technique and a 5 mm camera. The introducer was removed and the abdomen inspected. No damage from initial trocar placement or Veress needle placement was identified. There were no significant abnormalities to the 4 quadrants of the abdomen. 8 mm robotic ports were then placed on the left and right. An additional 5 mm media center assistant port was placed in the lateral right subcostal position. The patient was placed in reverse Trendelenburg position and rotated towards the left. The robot was then docked and the camera and robotic instruments were inserted. The gallbladder was distended and showed evidence of mild chronic inflammation. In order to aid in retraction, an opening was made in the dome of the gallbladder and the bile was suctioned. The dome of the gallbladder was grasped by the media center assistant and retracted towards the left upper quadrant and the infundibulum was retracted toward the right lower quadrant revealing Calot's triangle. Omental adhesions were taken down using electrocautery. Peritoneal attachments were taken down with electrocautery and blunt dissection. The cystic duct and artery were circumferentially dissected. A window of safety was obtained showing the cystic duct entering the gallbladder with no aberrant structures noted. We were able to identify the cystic duct utilizing the ICG. The cystic duct and artery were doubly clipped and divided. The gallbladder was then lifted off the gallbladder fossa with electrocautery. The right upper quadrant was irrigated and hemostasis was found to be good. The gallbladder was placed in an Endo Catch bag and removed through the one of the port sites. The fascia of the extraction site was closed with a single 0 Vicryl suture utilizing the Hakeem-Junito device. The instruments were removed and the robot was undocked. The trochars were removed and the abdomen was allowed to collapse. The skin of all ports was closed with 4-0 Monocryl subcuticular sutures. Dermabond was placed over the wounds. The patient was extubated in the operating room and taken to the PACU where she recovered without apparent incident. All sponge, instrument and needle counts were correct at the conclusion of the procedure. The patient tolerated the procedure well. The physician's media center assistant was present and scrubbed for the entirety of the case and was essential in positioning the patient, prepping and draping, retraction and exposure, driving the laparoscope, exchange of the robotic instruments removal of the gallbladder, closure of the incisions, and placement of the dressings. I attest to the content of the Intraoperative Record and any orders documented therein. Any exceptions are noted below.
[2022-08-10] MEDS ORDERED: LABETALOL HCL IV 5 MG/ML 20ML IV ONE (15:29)
--- NOTE | 2022-08-10 15:54 | Anesthesiology Progress Note ---
Date of Service August 10, 2022 Anesthesia Post Procedure Vital Signs Vital Signs: Temp Pulse Pulse Pulse Resp BP Pulse Ox 08/10/22 13:26 36.6 C 64 18 147/88 H 98 08/10/22 07:15 36.9 C 72 18 156/73 H 94 08/09/22 20:13 36.7 C 75 16 163/77 H 95 08/09/22 16:29 36.4 C L 80 18 159/82 H 96 O2 Del Method 08/10/22 13:26 Room Air 08/10/22 07:15 Room Air 08/09/22 20:13 Room Air 08/09/22 16:29 Room Air Pain Intensity Right Lower Abdomen: Pain Intensity: 3 Transfer of Care Handoff Completed per policy Notes Mental Status: alert / awake / arousable and participated in evaluation Patient Amnestic to Procedure: Yes Nausea / Vomiting: adequately controlled Pain: adequately controlled Airway Patency, RR, SpO2: stable & adequate BP & HR: stable & adequate Hydration State: stable & adequate Anesthetic Complications: no major complications apparent and Pt Satisfied with anesthetic care
[2022-08-10] MEDS ORDERED: oxyCODONE HCL IR 5 MG TAB (IMMEDIATE RELEASE) PO PRN (16:21)
[2022-08-10] MEDS: ACETAMINOPHEN 500 MG TAB PO PRN (17:55)
[2022-08-10] MEDS: METOPROLOL SUCC 25MG EXT REL TAB PO SCH (20:18)
[2022-08-11] MEDS: LACTATED RINGER'S 1,000 ML IV SCH ×2 (02:41→10:05)
[2022-08-11] MEDS: cefOXitin 2,000 MG in DEXTROSE 5% 50 ML IV SCH ×2 (04:05→13:53)
[2022-08-11 06:49] LABS: Basophils # (auto) 0.05 K/uL (0-0.2); Basophils % (auto) 0.4 %; Eosinophils # (auto) 0.17 K/uL (0-0.50); Eosinophils % (auto) 1.5 %; Hematocrit (blood only) 29.3 % (37.0-47.0); Hemoglobin 10.6 g/dl (12.0-16.0); Immature Granulocytes # (auto) 0.02 K/uL (0.01-0.20); Immature Granulocytes % (auto) 0.2 %; Lymphocytes # (auto) 0.84 K/uL (1.2-3.4); Lymphocytes % (auto) 7.4 %; Mean Corpuscular Hgb Conc 36.2 g/dL (32.0-36.0); Mean Corpuscular Volume 88.5 fL (80.0-100.0); Mean Platelet Volume 11.4 fL (9.4-12.4); Monocytes # (auto) 0.88 K/uL (0.11-0.59); Monocytes % (auto) 7.7 %; Neutrophils % (auto) 82.8 %; Platelet Count 126 K/uL (130-400); RDW Coefficient of Variation 11.2 % (11.5-14.5); RDW Standard Deviation 36.2 fL (36.4-46.3); Red Blood Count 3.31 M/uL (4.20-5.40); White Blood Count 11.36 K/ul (4.8-10.8)
[2022-08-11 07:07] LABS: Albumin Globulin Ratio 1.6 (0.9-2); BUN Creatinine Ratio 13.7 (10-20); Bilirubin,Total 0.8 mg/dl (0.2-1.0); Calcium 7.6 mg/dl (8.6-10.3); Creatinine Clr Calc Pharmacy 45.3 ml/min; Est GFR (African American) 88.3 ml/min; Est GFR (Non-African American) 76.2 ml/min; Globulin 1.9 gm/dl (2.5-4.0); Magnesium 1.8 mg/dl (1.7-2.4); Potassium 4.2 mmol/L (3.5-5.1); Total Protein 4.9 gm/dl (6.0-8.3)
--- NOTE | 2022-08-11 08:10 | Hospitalist Progress Note ---
Date of Service August 11, 2022 Assessment & Plan (1) Acute cholecystitis: Plan: Melia is an 81-year-old female who presents with right upper quadrant pain of several days concerning for acute cholecystitis ? Acute cholecystitis No leukocytosis, but did have left shift on admission. Along with RUQ pain, +murphys, anorexia, decreased BMs (last BM stated 3-4 days ago, poor PO intake) TB elevation 1.5, GB US w/ persistent significant gallbladder distention. Small amount of sludge within the gallbladder. No gallstones. Positive sonographic Gonzalez sign. Acute cholecystitis cannot be excluded. A hepatobiliary scan could be obtained for further evaluation as indicated. 2. Mild biliary ductal dilatation could be correlated with obstructive liver function tests. General surgery consulted -- appreciate assistance HIDA scan w/ Nonvisualization of gallbladder activity at 75 minutes. suggests chronic cholecystitis POD#1 s/p Robotic Laparoscopic Cholecystectomy(Not Applicable) - Pierce Shabazz, DO, FACS. EBL 15cc WBC elevation likely 2nd to surgery/stress. Afebrile and will monitor on repeat Pain control/antiemetics prn -- encouraged PO pain control today in hopes for d/c tomorrow Surgery advanced to regular diet for lunch -- encouraged patient to take it slow If any worsening abdominal pain, can check KUB but has great bowel sounds on exam Colace BID for now/ambulation encouraged Continues on cefoxitin IV for now - will continue 24hr post-op and dc after dose tonight Dc IVF as tolerating diet LFTs normal on repeat Monitor labs in AM/pain control -- possible dc in AM if stable (2) HTN (hypertension), benign: Plan: BP 123/71 Elevations 2nd to pain -- improved w/ change in pain regimen as above Remains on metoprolol Monitor BP (3) BRCA gene mutation positive: Plan: Continue tamoxifen S/p mastectomy ~2mo ago (4) Sleep apnea: Plan: reported did not get good sleep last night CPAP HS ordered (5) Malnutrition: Plan: body weight loss ~7% in about a month 2nd to n/v/poor PO intake - see above monitor for any issues refeeding, check phos w/ am labs Plan monitoring pain control overnight/bowel function patient hopeful for discharge tomorrow Admission and Anticipated Discharge Date Admission Date: August 08, 2022 Supervising Physician Co-Signing Physician Notes The patient was not seen by me. The chart was reviewed. Case discussed with PRISCILLA Patino. Agree with assessment and plan Subjective eval this morning. ate some clears last night and some eggs this morning doing better this morning, medicated with tylenol but pain creeping back up. RN to provide oxycodone. great bowel sounds despite stating no BM. Discussed if worsening abd pain this afternoon/no flatus will check KUB but encouraged am bulation in john[place]. Discussed monitoring overnight to ensure good pain control/bowel function and possible dc tomorrow. No fever/chills, chest pain, shortness of breath at this time. Physical Exam Physical Exam: General: WD/WN female laying in bed, NAD HEENT: head normocephalic, atraumatic, mm improved, trachea midline, HARD OF HEARING Resp: CTA, no w/c, slightly diminished in the bases but improved, on room air CV: RRR, faint systolic murmur, no rub/gallop, no pitting edema/calf tenderness GI: +BS throughout, soft, incisional tenderness noted, slight distension, no guarding/rigidity : no [place] MSK/Neuro: no focal deficit, no slurred speech Psych: alert, orientedx3 Results & Data Results & Data Vital Signs (Past 12 Hours) Vital Signs Temp Pulse Resp BP Pulse Ox O2 Del Method 08/11/22 07:41 36.6 C 66 16 123/71 94 Room Air 08/11/22 03:00 36.5 C 66 18 108/62 95 Room Air 08/10/22 23:01 36.7 C 72 18 112/67 96 Room Air 08/10/22 20:15 36.6 C 74 16 164/83 H 96 Room Air Laboratory Results 08/11/22 08/11/22 Range/Units 05:57 05:57 WBC 11.36 H (4.8-10.8) K/ul RBC 3.31 L (4.20-5.40) M/uL Hgb 10.6 L (12.0-16.0) g/dl Hct 29.3 L (37.0-47.0) % MCV 88.5 (80.0-100.0) fL MCH 32.0 (25.0-34.0) pg MCHC 36.2 H (32.0-36.0) g/dL RDW Std Deviation 36.2 L (36.4-46.3) fL RDW Coeff of Buzz 11.2 L (11.5-14.5) % Plt Count 126 L (130-400) K/uL MPV 11.4 (9.4-12.4) fL Immature Gran % (Auto) 0.2 % Neut % (Auto) 82.8 % Lymph % (Auto) 7.4 % [place] % (Auto) 7.7 % Eos % (Auto) 1.5 % Baso % (Auto) 0.4 % Neut # (Auto) 9.40 H (1.40-6.50) K/uL Lymph # (Auto) 0.84 L (1.2-3.4) K/uL [place] # (Auto) 0.88 H (0.11-0.59) K/uL Eos # (Auto) 0.17 (0-0.50) K/uL Baso # (Auto) 0.05 (0-0.2) K/uL Immature Gran # (Auto) 0.02 (0.01-0.20) K/uL Sodium 134 L (136-145) mmol/L Potassium 4.2 D (3.5-5.1) mmol/L Chloride 101 (98-107) mmol/L Carbon Dioxide 28 (21-32) mmol/L Anion Gap 5 (3-11) BUN 10 (6-23) mg/dl Creatinine 0.73 (0.6-1.2) mg/dl Est Cr Clr Drug Dosing 45.3 ml/min Est GFR ( Amer) 88.3 ml/min Est GFR (Non-Af Amer) 76.2 ml/min BUN/Creatinine Ratio 13.7 (10-20) Glucose 128 H (70-99(Fasting)) mg/dl Calcium 7.6 L (8.6-10.3) mg/dl Magnesium 1.8 (1.7-2.4) mg/dl Total Bilirubin 0.8 (0.2-1.0) mg/dl AST 17 (13-39) U/L ALT 11 (7-52) U/L Alkaline Phosphatase 43 (34-104) U/L Total Protein 4.9 L (6.0-8.3) gm/dl Albumin 3.0 L (3.4-5.0) gm/dl Globulin 1.9 L (2.5-4.0) gm/dl Albumin/Globulin Ratio 1.6 (0.9-2) PG Care Time/CCT Total # of Minutes Spent Total Time Spent with Patient: Total time spent is greater than 50% in coordination of care (as documented) at patient's floor/unit and/or counseling patient: Coding Level of Care Code 82748 SUB INP/OBS CARE 3/50MIN Diagnoses Acute cholecystitis K81.0 HTN (hypertension), benign I10 BRCA gene mutation positive Z15.01; Z15.09 Sleep apnea G47.30 Malnutrition E46
--- NOTE | 2022-08-11 08:38 | Surgery Progress Note ---
Date of Service August 11, 2022 Assessment & Plan (1) S/P laparoscopic cholecystectomy: Plan: POD #1 robotic cholecystectomy, doing well Advance diet Okay to discharge later this afternoon if tolerates Wound care instructions, activity restrictions, and return precautions given Follow-up in general surgery clinic in 2-week Admission and Anticipated Discharge Date Admission Date: August 08, 2022 Subjective POD #1 robotic cholecystectomy. Feels much better. Tolerated clear liquids. Incisions a little sore. Physical Exam Constitutional: WD/WN, vitals as above Gastrointestinal (Abdomen): normal bowel sounds, soft, nontender, no hepatosplenomegaly Inspection/Auscultation: + abdominal surgical incision (Healing well) Results & Data Vital Signs (Past 12 Hours) Vital Signs Temp Pulse Resp BP Pulse Ox O2 Del Method 08/11/22 07:41 36.6 C 66 16 123/71 94 Room Air 08/11/22 03:00 36.5 C 66 18 108/62 95 Room Air 08/10/22 23:01 36.7 C 72 18 112/67 96 Room Air Laboratory Results Laboratory Results - last 24 hr 08/10/22 08/11/22 08/11/22 07:50 05:57 05:57 WBC 11.36 H RBC 3.31 L Hgb 10.6 L Hct 29.3 L MCV 88.5 MCH 32.0 MCHC 36.2 H RDW Std Deviation 36.2 L RDW Coeff of Buzz 11.2 L Plt Count 126 L MPV 11.4 Immature Gran % (Auto) 0.2 Neut % (Auto) 82.8 Lymph % (Auto) 7.4 [place] % (Auto) 7.7 Eos % (Auto) 1.5 Baso % (Auto) 0.4 Neut # (Auto) 9.40 H Lymph # (Auto) 0.84 L [place] # (Auto) 0.88 H Eos # (Auto) 0.17 Baso # (Auto) 0.05 Immature Gran # (Auto) 0.02 Sodium 135 L 134 L Potassium 3.4 L 4.2 D Chloride 102 101 Carbon Dioxide 27 28 Anion Gap 6 5 BUN 16 10 Creatinine 0.68 0.73 Est Cr Clr Drug Dosing 48.6 45.3 Est GFR ( Amer) 93.8 88.3 Est GFR (Non-Af Amer) 80.9 76.2 BUN/Creatinine Ratio 23.5 H 13.7 Glucose 81 128 H Calcium 8.0 L 7.6 L Magnesium 1.6 L 1.8 Total Bilirubin 1.0 0.8 AST 14 17 ALT 7 11 Alkaline Phosphatase 45 43 Total Protein 5.4 L 4.9 L Albumin 3.2 L 3.0 L Globulin 2.2 L 1.9 L Albumin/Globulin Ratio 1.5 1.6 PG Care Time/CCT Total # of Minutes Spent Total Time Spent with Patient: Total time spent is greater than 50% in coordination of care (as documented) at patient's floor/unit and/or counseling patient: Coding Level of Care Code None Diagnoses S/P laparoscopic cholecystectomy Z90.49
[2022-08-11] MEDS: TAMOXIFEN CITRATE 10 MG TABLET PO SCH (08:48)
[2022-08-11] MEDS: ACETAMINOPHEN 500 MG TAB PO PRN (09:02)
[2022-08-11] MEDS: DOCUSATE SODIUM 100 MG CAP PO SCH ×2 (11:02→20:04)
[2022-08-11 16:18] VITALS: O2SAT 97
[2022-08-11] MEDS: METOPROLOL SUCC 25MG EXT REL TAB PO SCH (20:04)
[2022-08-12] MEDS: oxyCODONE HCL IR 5 MG TAB (IMMEDIATE RELEASE) PO PRN ×2 (01:07→08:56)
[2022-08-12 06:24] LABS: Basophils # (auto) 0.03 K/uL (0-0.2); Basophils % (auto) 0.4 %; Eosinophils # (auto) 0.26 K/uL (0-0.50); Eosinophils % (auto) 3.1 %; Hematocrit (blood only) 29.7 % (37.0-47.0); Hemoglobin 10.7 g/dl (12.0-16.0); Immature Granulocytes # (auto) 0.02 K/uL (0.01-0.20); Immature Granulocytes % (auto) 0.2 %; Lymphocytes % (auto) 15.5 %; Mean Corpuscular Hemoglobin 32.5 pg (25.0-34.0); Mean Corpuscular Volume 90.3 fL (80.0-100.0); Mean Platelet Volume 11.6 fL (9.4-12.4); Monocytes # (auto) 0.75 K/uL (0.11-0.59); Monocytes % (auto) 8.9 %; Neutrophils # (auto) 6.04 K/uL (1.40-6.50); Neutrophils % (auto) 71.9 %; Platelet Count 117 K/uL (130-400); RDW Coefficient of Variation 11.5 % (11.5-14.5); RDW Standard Deviation 37.9 fL (36.4-46.3); Red Blood Count 3.29 M/uL (4.20-5.40)
[2022-08-12 06:40] LABS: Albumin Globulin Ratio 1.5 (0.9-2); Albumin Level 2.9 gm/dl (3.4-5.0); BUN Creatinine Ratio 18.4 (10-20); Bilirubin,Total 0.5 mg/dl (0.2-1.0); Calcium 7.9 mg/dl (8.6-10.3); Creatinine Clr Calc Pharmacy 43.5 ml/min; Est GFR (African American) 84.1 ml/min; Est GFR (Non-African American) 72.5 ml/min; Magnesium 1.9 mg/dl (1.7-2.4); Phosphorus 1.7 mg/dl (2.5-4.9); Potassium 3.8 mmol/L (3.5-5.1); Total Protein 4.9 gm/dl (6.0-8.3)
[2022-08-12 07:07] VITALS: BP 120/68; PULSE 66; TEMP 97.7
[2022-08-12] MEDS: TAMOXIFEN CITRATE 10 MG TABLET PO SCH (08:56)
[2022-08-12] MEDS: DOCUSATE SODIUM 100 MG CAP PO SCH (08:56)
--- NOTE | 2022-08-12 10:25 | Surgery Progress Note ---
Date of Service August 12, 2022 Assessment & Plan (1) S/P laparoscopic cholecystectomy: Plan: OK to discharge if medically cleared diet as tolerated no strenuous activity; no lifting >20lbs shower OK driving after weekend if not taking narcotics Present on Admission?: Yes Admission and Anticipated Discharge Date Admission Date: August 08, 2022 Subjective feels OK some pain eating OK ambulating Review of Systems Constitutional: no fever and no chills Respiratory: no cough and no dyspnea Cardiovascular: no chest pain Gastrointestinal: + abdominal pain; no nausea and no vomiting Genitourinary: no dysuria Physical Exam Constitutional: + thin Eyes: PERRL, conjunctivae normal, anicteric sclerae ENMT: external ear and nose normal, oropharynx normal Respiratory: normal respiratory effort, lungs clear to auscultation Cardiovascular: RRR, no murmur, no edema Gastrointestinal (Abdomen): Inspection/Auscultation: abdomen normal to inspection, normal bowel sounds and + abdominal surgical incision; abdomen not distended Percussion/Palpation: abdomen soft; abdomen nontender, no guarding and abdomen not rigid Results & Data Vital Signs (Past 12 Hours) Vital Signs Temp Pulse Resp BP Pulse Ox O2 Del Method 08/12/22 07:03 36.5 C 66 18 120/68 97 Room Air
--- NOTE | 2022-08-12 12:35 | Discharge Summary ---
Date of Service August 12, 2022 Principal Diagnosis Acute on chronic cholecystitis Discharge Exam General-alert and oriented x3, no fevers, no chills HEENT-head atraumatic and normocephalic, TMs intact bilaterally, pupils equal and reactive to light, extraocular muscles intact Neck-no lymphadenopathy or thyromegaly, trachea midline Chest-clear to auscultation percussion. No rales wheezing or rhonchi Cardiac-regular rate and rhythm, normal S1 and S2, no murmurs Abdomen-normal bowel sounds, no hepatosplenomegaly. Lap sally sites unremarkable. Mild tenderness at lap sally sites as expected Extremities-no cyanosis, clubbing, or edema Neuro-cranial nerves II through XII intact, motor and sensory function within normal limits, strength symmetrical , no focal deficits Psych-normal affect, normal mood Discharge Data Allergies Allergy/AdvReac Type Severity Reaction Status Date / Time tetracycline Allergy Unknown BRUISING; Verified 08/08/22 15:37 rash on legs Consultations 08/08/22 12:41 Consult General Surgery Routine 08/08/22 15:24 ED Decision to Admit Stat Procedures Performed Operation Date: 08/10/22 12:40 Actual Procedures p Robotic Laparoscopic Cholecystectomy(Not Applicable) - Pierce Shabazz DO, FACS Ordered Studies 08/08/22 12:39 gallbladder Stat Hospital Course (1) HTN (hypertension), benign: Stable. Continue current medical management (2) Acute cholecystitis: Postoperative day #2 after laparoscopic cholecystectomy. Appreciate surgery consultation and recommendations. She has been cleared for discharge home today, August 12 (3) BRCA gene mutation positive: Stable. Continue current medical management (4) Hyperlipidemia: Stable. Continue current medical management Plan Home todayAugust 12 Total Time Total Time Spent Total Time Spent (In Minutes): 40 minutes Discharge Plan Discharge Items Patient Disposition: Home - Self-Care Reason For Visit: ?SALLY Discharge Diagnosis: Acute cholecystitis, status post laparoscopic cholecystectomy Activity: Per Instructions section Lifting: No more than 10 pounds Bathing Comment: may shower; no soaking in tubs/pools x 2 weeks Exercise/Sports: Wait until after follow-up appointment Driving/Machine Use: no driving while taking narcotics for pain Non-emergency contact: Primary Care Provider and Surgeon Call non-emergency contact if: you have any medication questions, your pain is not controlled, you have a fever, your temperature is above 101.5, your wound has increased redness and your wound has increased drainage Follow-up/Referrals: Pierce Shabazz, HEMAL RYAN [Physician] - (Please call to schedule follow up in clinic within 2 weeks ) Mirtha Comer [Primary Care Provider] - Diet: Regular Addtl Attending Provider Instructions: You may purchase Tylenol over the counter if needed for pain control. Take per manufacturers instructions Pending Studies at Discharge: No Stand-Alone Forms: My [facility] [email or web address], Smoking Cessation Medications and DC Order Prescriptions: New oxycodone 5 mg tablet 5 - 10 mg PO .[id number] PRN (Reason: pain, for initial therapy, max 6 tabs per day) Qty: 10 0RF Continued Calcium Magnesium 500 mg calcium -250 mg tablet 2 tab PO DAILY multivitamin [Daily Multi-Vitamin] Tablet 1 tab PO DAILY Prolia 60 mg/mL syringe 60 mg subcut UD Rx Instructions: every 6 months metoprolol succinate 25 mg tablet extended release 24 hr 12.5 mg PO HS tamoxifen 20 mg tablet 20 mg PO DAILY valacyclovir [Valtrex] 500 mg tablet 500 mg PO BID PRN (Reason: outbreak) Qty: 30 1RF Rx Instructions: Take one pill twice per day for 3 days at start of outbreak atorvastatin 20 mg tablet 20 mg PO HS cholecalciferol (vitamin D3) [Vitamin D3] 50 mcg (2,000 unit) Tablet 2,000 unit PO HS coQ10 (ubiquinol) 100 mg Capsule 100 mg PO HS ondansetron 4 mg tablet,disintegrating 4 mg PO Q6H PRN (Reason: nausea and vomiting) Qty: 15 0RF Myrbetriq 50 mg tablet extended release 24 hr 25 mg PO DAILY Rx Instructions: This dose was stated by patient. Discharge Orders: Discharge Order (Routine); Ordered 08/12/22 Ordered By: Ady Foote Admission Data Admit Date/Time: 08/08/22 16:04 Attending Provider: Ady Foote Admit Provider: Omar Mora Primary Care Provider: Mirtha Comer Other Providers: Pierce Shabazz ; Omar Mora Coding Level of Care Code 27355 INP/OBS DISCH >30 MIN Diagnoses HTN (hypertension), benign I10 Acute cholecystitis K81.0 BRCA gene mutation positive Z15.01; Z15.09 Hyperlipidemia E78.5
== END 2022-08-12 13:54 | disposition home or self-care (01) | DRG 418 ==
LOC: ED 12:13 → 3N 16:04 → SUATTDRO 16:04 → 3N 17:11

== ENCOUNTER 2024-11-04 18:08 | Inpatient (IN) ==
[2024-11-04] MEDS: SODIUM CHLORIDE 0.9% 1,000 ML IV ONE (18:37)
[2024-11-04 19:07] LABS: Alanine Aminotransferase 89.0 U/L (7-52); Albumin Globulin Ratio 1.2 (0.9-2); Alkaline Phosphatase 496.0 U/L (34-104); Anion Gap 9.0 (3-11); Bilirubin,Total 4.9 mg/dl (0.2-1.0); Blood Urea Nitrogen 37.0 mg/dl (6-23); Calcium 8.6 mg/dl (8.6-10.3); Carbon Dioxide 24.0 mmol/L (21-32); Chloride 105.0 mmol/L (98-107); Creatinine Clr Calc Pharmacy 28.4 ml/min; Globulin 2.4 gm/dl (2.5-4.0); Glucose 114.0 mg/dl (70-99(Fasting)); Potassium 4.9 mmol/L (3.5-5.1); Sodium 138.0 mmol/L (136-145); Total Protein 5.3 gm/dl (6.0-8.3)
--- NOTE | 2024-11-04 19:14 | Emergency Department Note ---
Impression & Plan Acute hypoxemic respiratory failure, Pleural effusion ED Provider Note NAME: SANTY OCAMPO AGE: 83 SEX: F : 1940 ARRIVES VIA: Walk-In INFORMANT: Patient, ED PROVIDER(S): Radha Vasquez MD CHIEF COMPLAINT: Dehydration HPI: This 83-year-old female with metastatic cancer presenting for dehydration. Patient states she has no appetite and has not been able to eat or drink as result. She feels extremity hydrated. She states she is starting hospice in the next few days. Her goal is to peacefully. She would like to avoid admission if possible. She states she is here for rehydration therapy. ROS: See above HPI for pertinent positives & negatives. A total of 10 systems reviewed and were otherwise negative. PAST MEDICAL HISTORY: See Below PAST SURGICAL HISTORY: See Below FAMILY HISTORY: See Below SOCIAL HISTORY: See Below HOME MEDICATIONS: See Below ALLERGIES: See Below VITALS: See Below PHYSICAL EXAMINATION: General: resting comfortably in no acute distress, cachectic, dry oral mucosa Head: Normocephalic and atraumatic Eyes: Normal inspection, extraocular muscles intact Ear, nose, throat: Normal external exam Neck: Normal range of motion Respiratory: speaking in full sentences, symmetric chest rise, no respiratory distress Cardiovascular: Regular rate/rhythm Extremities: moves all extremities Neuro: The patient awake and alert, appropriately conversive, symmetric faces, no focal deficits MEDICAL DECISION MAKING: This is an 83-year-old Femstat for dehydration. Patient states she has no appetite and does not eat or drink as result of this. We are fluid resuscitation at this time. Will do basic blood work. Patient does not seek inpatient admission at this time. She will like to go home if at all possible. She will be admitted if only absolute necessary. She is scheduled start hospice in the next few days - Blood reveals signs of worsening metastatic disease including increasing transaminitis and alkaline phosphatase -Patient is currently hypoxic requiring 2 L nasal cannula. She does not have home oxygen. Did discuss patient's need for home O2 prior to discharge regardless of etiology. She is comfortable with admission for oxygen needs -Chest x-ray reveals a pleural effusion on the right, asked Independently interpreted me -Discussed with Dr. Azul for admission Differential diagnosis: Dehydration, pleural effusion, metastatic cancer Independent History obtained from: Boyfriend Diagnostics interpreted by me: ECG: None Cardiac Monitoring: An order was placed for continuous cardiac monitoring. The monitor shows a rate of 103 with sinus rhythm. Past Med/Surg History Problem List (Updated 11/05/24 @ 00:25 by Radha Vasquez MD) Pleural effusion (Acute) Acute hypoxemic respiratory failure (Acute) Acute dehydration Counseling regarding goals of care Palliative care by specialist Thrombocytopenia Breast cancer COOL (dyspnea on exertion) Hypoxia (Acute) Deep vein thrombosis of right upper extremity (Acute) Pleural effusion (Acute) Metastatic disease (Acute) Symptomatic anemia (Acute) Pleural effusion Thrombus Secondary hyperparathyroidism Sleep apnea (Chronic) Obstructive sleep apnea History of lymph node dissection of right axilla 11/15/22 Dr. Jones History of surgery 05/24/22 Right simple mastectomy with SLN biopsy Dr. Jones Recurrent cancer of right breast (Chronic) 04/25/22 Punch biopsy skin right breast Biopsy of right axilla 10/18/22 S/P laparoscopic cholecystectomy Robotic cholecystectomy [address] Shabazz Acute cholecystitis (Acute) Mitral regurgitation (Chronic) Osteopenia (Chronic) Vitamin D deficiency (Chronic) Malignant neoplasm of upper-outer quadrant of right breast in female, estrogen receptor positive (Chronic 04/20/21) Breast cancer, right Vertigo (Acute) Uterine prolapse (Acute) Urinary urgency (Acute) Urinary frequency (Acute) Scoliosis (Acute) Ovarian cyst (Acute) Osteoporosis of forearm (Acute) Mineral deficiency (Acute) Mass of pelvis (Acute) Hayti-Walker grade 3 cystocele (Acute) Arthritis (Acute) Anemia (Acute) Chronic laryngitis Dizziness HSV infection Medical History HTN (hypertension), benign Chronic cholecystitis without calculus BRCA gene mutation positive HSV-1 (herpes simplex virus 1) infection cold sores not at present Hyperlipidemia Hypercholesterolemia Surgical History Hx laparoscopic cholecystectomy (08/10/22) Robotic Laparoscopic Cholecystectomy(Not Applicable) - Pierce Shabazz DO, FACS S/P right mastectomy History of lumpectomy of right breast (06/08/21) Right Breast Lumpectomy with Preoperative Needle Localization x2 and Right Axillary [place] Lymph Node Biopsy Dr. Taina Jones at [facility] History of ultrasound guided needle biopsy (04/20/21) Breast - Right History of biopsy (05/31/21) Breast - Right H/O colonoscopy History of dental surgery dental implant H/O thumb surgery Right + Left S/P tubal ligation Hx of BSO (bilateral salpingo-oophorectomy) Hx of tonsillectomy Family History Mother Breast cancer Sister Ovarian cancer Multiple sclerosis Aunt Ovarian cancer Maternal Uterine cancer Breast cancer Grandmother (Maternal) Cancer Father Heart disease Daughter Sarcoma Daughter BRCA gene mutation positive Social History Smoking Status: Former smoker Tobacco Type: Cigarettes packs per day: 0.4; Second Hand Exposure: No; Do You Dip or Chew Tobacco: No; Hx Alcohol Use: No Hx Substance Use: No Preferred Language: French Communication Ability: Effective Visual Impairment: Limited Hearing Ability: Use of Hearing Aid Dispatcher Electric Power Required: No Beliefs That Will Affect Care: None marital status: / Current Living Situation: Significant Other Current Living Situation Comment: goes between her home and her boyfriends home current occupational status: retired current occupation: Artist How many Children do You have: 2 How many Children do You have Comment: 1 living, 1 Feels Safe at Home: Yes Childhood Exposure to Second-Hand Smoke: Yes Diet: regular during the past year weight has: remained stable Dental Care, Regularly: Yes Assistive Devices: Glasses and Hearing Aid - Bilateral Allergies Allergies Allergy/AdvReac Type Severity Reaction Status Date / Time garlic Allergy Intermediate Gastrointestinal Unverified 11/04/24 19:23 Upset tetracycline Allergy Unknown BRUISING; Verified 11/04/24 19:23 rash on legs Home Meds Home Medications Medication Instructions Recorded Confirmed atorvastatin 20 mg tablet 20 mg PO DAILY 05/15/19 11/04/24 anastrozole 1 mg tablet 1 mg PO DAILY 10/14/24 11/04/24 levothyroxine 50 mcg tablet 50 mcg PO DAILYBB 10/14/24 11/04/24 albuterol sulfate 90 mcg/actuation 2 puff inhalation Q6H PRN 11/04/24 11/04/24 aerosol inhaler Shortness Of Breath Or Wheezing Previous Rx's Medication Instructions Recorded calcitriol 0.25 mcg capsule 0.25 mcg PO DAILY #30 caps 07/30/24 Results & Data (ED) Vital Signs Vital Signs - 24 hr 11/04/24 18:21 11/04/24 18:26 11/04/24 18:26 Temperature 36.4 C L Temperature Source Oral Pulse Rate 100 H Pulse Rate [Apical] Pulse Rhythm [Apical] Pulse Strength [Apical] Respiratory Rate 24 Respiratory Effort / Characteristics Non-Labored Respiratory Depth Normal Respiratory Pattern Blood Pressure 137/67 Blood Pressure [Left Arm] Blood Pressure Mean 90 Blood Pressure Mean [Left Arm] Pulse Oximetry 87 L 95 Oxygen Delivery Method Room Air Nasal Cannula Nasal Cannula Oxygen Flow Rate 2 2 Sepsis Recent Fever Within 48 Hours No Sepsis New/Unexplained Change in Mental Status N/A Sepsis Action Taken by Nursing No Action Required 11/04/24 18:27 11/04/24 18:41 11/04/24 19:30 Temperature Temperature Source Pulse Rate 106 H 95 H Pulse Rate [Apical] Pulse Rhythm [Apical] Pulse Strength [Apical] Respiratory Rate 22 Respiratory Effort / Characteristics Respiratory Depth Respiratory Pattern Blood Pressure 155/76 H Blood Pressure [Left Arm] Blood Pressure Mean 102 Blood Pressure Mean [Left Arm] Pulse Oximetry 95 92 Oxygen Delivery Method Nasal Cannula Nasal Cannula Oxygen Flow Rate 2 2 Sepsis Recent Fever Within 48 Hours Sepsis New/Unexplained Change in Mental Status Sepsis Action Taken by Nursing 11/04/24 20:00 11/04/24 20:20 11/04/24 20:30 Temperature Temperature Source Pulse Rate 96 H 97 H Pulse Rate [Apical] 98 H Pulse Rhythm [Apical] Regular Pulse Strength [Apical] Normal Respiratory Rate 20 22 20 Respiratory Effort / Characteristics Non-Labored Spontaneous Respiratory Depth Normal Respiratory Pattern Regular Blood Pressure 122/63 111/68 Blood Pressure [Left Arm] 122/63 Blood Pressure Mean 99 93 Blood Pressure Mean [Left Arm] 82 Pulse Oximetry 94 92 91 Oxygen Delivery Method Nasal Cannula Nasal Cannula Nasal Cannula Oxygen Flow Rate 2 2 2 Sepsis Recent Fever Within 48 Hours Sepsis New/Unexplained Change in Mental Status Sepsis Action Taken by Nursing 11/04/24 21:00 11/04/24 21:30 11/04/24 22:00 Temperature Temperature Source Pulse Rate 98 H 95 H 99 H Pulse Rate [Apical] Pulse Rhythm [Apical] Pulse Strength [Apical] Respiratory Rate 22 22 22 Respiratory Effort / Characteristics Respiratory Depth Respiratory Pattern Blood Pressure 144/72 H 143/94 H 133/68 Blood Pressure [Left Arm] Blood Pressure Mean 96 130 102 Blood Pressure Mean [Left Arm] Pulse Oximetry 90 98 96 Oxygen Delivery Method Nasal Cannula Nasal Cannula Nasal Cannula Oxygen Flow Rate 2 2 2 Sepsis Recent Fever Within 48 Hours Sepsis New/Unexplained Change in Mental Status Sepsis Action Taken by Nursing 11/04/24 22:30 11/04/24 22:47 Temperature Temperature Source Pulse Rate 98 H 103 H Pulse Rate [Apical] Pulse Rhythm [Apical] Pulse Strength [Apical] Respiratory Rate 23 Respiratory Effort / Characteristics Respiratory Depth Respiratory Pattern Blood Pressure 123/67 Blood Pressure [Left Arm] Blood Pressure Mean 85 Blood Pressure Mean [Left Arm] Pulse Oximetry 94 Oxygen Delivery Method Nasal Cannula Oxygen Flow Rate 2 Sepsis Recent Fever Within 48 Hours Sepsis New/Unexplained Change in Mental Status Sepsis Action Taken by Nursing Laboratory Data 11/04/24 18:38 11/04/24 18:38 Lab Results 11/04/24 Range/Units 18:38 WBC 9.68 (4.8-10.8) K/ul RBC 2.96 L (4.20-5.40) M/uL Hgb 10.0 L (12.0-16.0) g/dl Hct 31.2 L (37.0-47.0) % MCV 105.4 H (80.0-100.0) fL MCH 33.8 (25.0-34.0) pg MCHC 32.1 (32.0-36.0) g/dL RDW Std Deviation 76.3 H (36.4-46.3) fL RDW Coeff of Buzz 20.1 H (11.5-14.5) % Plt Count 40 L (130-400) K/uL Absolute Nucleated RBC 1.34 H (0.00-0.12) K/uL Nucleated RBC % (auto) 13.8 % Neutrophils % (Manual) 61 % Lymphocytes % (Manual) 15 % Monocytes % (Manual) 8 % Eosinophils % (Manual) 2 % Basophils % (Manual) 2 % Metamyelocytes % (Man) 8 % Myelocytes % (Man) 4 % Neutrophils # (Manual) 5.90 (1.40-6.50) K/uL Total Absolute Neuts 5.90 (1.4-6.5) K/uL Lymphocytes # (Manual) 1.45 (1.2-3.4) K/uL Total Abs Lymphocytes 1.45 (1.2-3.4) K/uL Monocytes # (Manual) 0.77 H (0.11-0.59) K/uL Eosinophils # (Manual) 0.19 (0-0.50) K/uL Basophils # (Manual) 0.19 (0-0.2) K/uL Metamyelocytes # (Man) 0.77 H (0-0) K/uL Myelocytes # (Manual) 0.39 H (0-0) K/uL Toxic Granulation 1+ Polychromasia 2+ Anisocytosis Present Tear Drop Cells 1+ Ovalocytes 1+ Sodium 138 (136-145) mmol/L Potassium 4.9 (3.5-5.1) mmol/L Chloride 105 (98-107) mmol/L Carbon Dioxide 24 (21-32) mmol/L Anion Gap 9 (3-11) BUN 37 H (6-23) mg/dl Creatinine 1.18 (0.6-1.2) mg/dl Est Cr Clr Drug Dosing 28.4 ml/min eGFR 45.26 BUN/Creatinine Ratio 31.4 H (10-20) Glucose 114 H (70-99(Fasting)) mg/dl Calcium 8.6 (8.6-10.3) mg/dl Total Bilirubin 4.9 H (0.2-1.0) mg/dl AST 266 H (13-39) U/L ALT 89 H (7-52) U/L Alkaline Phosphatase 496 H (34-104) U/L Total Protein 5.3 L (6.0-8.3) gm/dl Albumin 2.9 L (3.4-5.0) gm/dl Globulin 2.4 L (2.5-4.0) gm/dl Albumin/Globulin Ratio 1.2 (0.9-2) Administered Medications Albumin Human (Albumin 25%) 25 gm in 100 mls @ 50 mls/hr IV Q2H CHAVEZ Stop: 11/05/24 03:29 Last Admin: 11/04/24 23:39 Dose: 50 mls/hr Documented By: TAMARA Discontinued Medications Furosemide (Furosemide 40 Mg/4 Ml Vial) 40 mg IV ONE ONE Stop: 11/04/24 23:22 Last Admin: 11/04/24 23:39 Dose: 40 mg Documented By: TAMARA Sodium Chloride (Nss) 1,000 mls @ 999 mls/hr IV .Q1H1M ONE Stop: 11/04/24 19:34 Last Infusion: 11/04/24 20:18 Dose: Infused Documented By: Admin: 11/04/24 18:37 Dose: 999 mls/hr Documented By: MELISA Sodium Chloride (Nss) 500 mls @ 999 mls/hr IV .Q31M ONE Stop: 11/04/24 20:36 Last Infusion: 11/04/24 22:49 Dose: Infused Documented By: Admin: 11/04/24 20:18 Dose: 999 mls/hr Documented By: JOELLEN Ondansetron HCl (Ondansetron Inj 2 Mg/Ml 2 Ml Vial) Confirm Administered Dose 4 mg .ROUTE .STK-MED ONE Stop: 11/04/24 23:52 Last Admin: 11/04/24 23:56 Dose: Not Given Documented By: TAMARA Ondansetron HCl (Ondansetron Inj 2 Mg/Ml 2 Ml Vial) 4 mg IV NOW STA Stop: 11/04/24 23:56 Last Admin: 11/04/24 23:56 Dose: 4 mg Documented By: TAMARA Discharge Plan Visit Data Chief Complaint: Dehydration Stated Complaint: DEHYDRATION, WEAKNESS ED Provider: Radha Vasquez Discharge Problem: Acute hypoxemic respiratory failure, Pleural effusion Patient Disposition: Admitted As Inpatient Condition: Fair Discharge Instructions Interventions: ED Discharge Assessment Last Done: 11/05/24 00:07 Forms Stand Alone Forms: [email or web address] Prescriptions Prescriptions: No Action calcitriol 0.25 mcg capsule 0.25 mcg PO DAILY Qty: 30 3RF atorvastatin 20 mg tablet 20 mg PO DAILY Hold Instructions: discuss with Dr. Vasquez anastrozole 1 mg tablet 1 mg PO DAILY Hold Instructions: Resume on 10/21/24. discuss with Dr. Vasquez levothyroxine 50 mcg tablet 50 mcg PO DAILYBB albuterol sulfate 90 mcg/actuation HFA aerosol inhaler 2 puff INHALATION Q6H PRN (Reason: Shortness Of Breath Or Wheezing) Referrals Referrals: Mirtha Comer [Primary Care Provider] -
[2024-11-04 19:45] LABS: Hematocrit (blood only) 31.2 % (37.0-47.0); Hemoglobin 10.0 g/dl (12.0-16.0); Mean Corpuscular Hemoglobin 33.8 pg (25.0-34.0); Mean Corpuscular Volume 105.4 fL (80.0-100.0); Platelet Count 40 K/uL (130-400); RDW Standard Deviation 76.3 fL (36.4-46.3); Red Blood Count 2.96 M/uL (4.20-5.40); White Blood Count 9.68 K/ul (4.8-10.8)
[2024-11-04 19:58] LABS: ALC (manual) 1.45 K/uL (1.2-3.4); ANC (manual) 5.90 K/uL (1.4-6.5); Anisocytosis Present; Ovalocytes 1+; Polychromasia 2+; Tear Drop Cells 1+; Toxic Granulation 1+
[2024-11-04] MEDS: SODIUM CHLORIDE 0.9% 500 ML IV ONE (20:18)
--- NOTE | 2024-11-04 22:58 | History & Physical Report ---
Date of Service November 04, 2024 Assessment & Plan (1) Hypoxia: (2) Pleural effusion: (3) Acute dehydration: (4) Thrombocytopenia: Plan Patient is an 83-year-old female with a past medical history including breast cancer with metastasis to bone s/p mastectomy, lymph node dissection, and chemotherapy currently transitioning to hospice early next week to focus on quality of life. She has a noted history of right upper extremity DVT and significant pleural effusion requiring thoracentesis 10/16 during recent admission. Patient presented today due to weakness and dehydration and feeling as though she needed IV fluids. After IVF resuscitation patient became hypoxic at 87% on room air requiring 2L NC and CXR showed right greater than left pleural effusion. She is being admitted to have home oxygen set up in the morning and for hypoxia control. #hypoxiabecame 87% on room air after 1.5 L NSS bolus in the ED, requiring 2L NC at time of admission. CXR shows right greater than left pleural effusions, worsening from recent admission. Wean oxygen as tolerated Incentive spirometry 50G IV albumin with 40mg Lasix IV ordered - renal function stable on admission, albumin 2.9 Will likely need set up with home oxygen prior to discharge #Dehydrationpatient reports poor p.o. intake, laboratories do appear hemoconcentrated with elevated Hgb, HCT, BUN/creatinine. Tachycardic on admission (103). - IVF as above with resulting pleural effusions Promote oral hydration Promote oral hydration #Transaminitis/elevated total bilirubinT. bili 4.9, AST 266, ALT 89, alk phos 496 in ED. History of lap lianet 07/2022. Discussion with patient regarding obtaining abdomen/pelvis CT to further evaluate for possible etiologies including but not limited to metastasis Patient declines at this time as she is going on hospice care next week and would not change her course of treatment #Thrombocytopeniaplatelet count 40 on arrival, recent baseline for patient. Defer chemical VTE PPx #Breast cancer with metastatic diseasebreast cancer with neoplasm to bone s/p mastectomy, LN dissection, chemotherapy. Previously followed with Dr. Vasquez at [facility] oncology. Patient has made decision to focus on quality of life and is reportedly transitioning to hospice care next week when she turns paperwork. 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 Noted discussions within chart review with patient regarding risk versus benefits of chronic anticoagulation and patient declined anticoagulation. VTE ppx: SCDs, platelet count 40 Dispo: med/telemetry Admission and Anticipated Discharge Date Admission Date: 11/04/24 History of Present Illness Chief Complaint: dehydration Primary Care Provider: Mirtha Comer Patient is an 83-year-old female with a past medical history including breast cancer with metastasis to bone s/p mastectomy, lymph node dissection, and chemotherapy currently transitioning to hospice early next week to focus on quality of life. She has a noted history of right upper extremity DVT and significant pleural effusion requiring thoracentesis 10/16 during recent admission. Patient presented today due to weakness and dehydration and feeling as though she needed IV fluids. After IVF resuscitation patient became hypoxic at 87% on room air requiring 2L NC and CXR showed right greater than left pleural effusion. She is being admitted to have home oxygen set up in the morning and for hypoxia control. Patient seen at bedside. She stated she has not been eating or drinking well and has been extremely weak so she came in because she felt dehydrated and wanted IV fluids. Her ultimate goal is to return home as she is transitioning to hospice early next week and she has the papers ready to go. She is not yet on hospice however has discontinued all of her home medications and noelle motherapy treatments. Patient stated she does have intermittent constipation resulting in diarrhea that she had yesterday. She does endorse recent nausea however no vomiting in the past 24 hours. She denies fevers, chills, chest pain, shortness of breath, abdominal pain. She stated she did aspirate fluid several weeks ago but denies any cough, congestion, or dyspnea since. She does not use any oxygen at baseline and does not use any CPAP/BiPAP for sleep apnea. She wishes to maintain her DNR/DNI status. Discussed with ER provider and case management, patient unable to go home requiring oxygen and unable to set up with home oxygen overnight. Allergies Allergy/AdvReac Type Severity Reaction Status Date / Time garlic Allergy Intermediate Gastrointestinal Unverified 11/04/24 19:23 Upset tetracycline Allergy Unknown BRUISING; Verified 11/04/24 19:23 rash on legs Home Medications Medication Instructions Recorded Confirmed Type atorvastatin 20 mg tablet 20 mg PO DAILY 05/15/19 11/04/24 History calcitriol 0.25 mcg capsule 0.25 mcg PO DAILY #30 caps 07/30/24 11/04/24 Rx anastrozole 1 mg tablet 1 mg PO DAILY 10/14/24 11/04/24 History levothyroxine 50 mcg tablet 50 mcg PO DAILYBB 10/14/24 11/04/24 History albuterol sulfate 90 mcg/actuation 2 puff inhalation Q6H PRN 11/04/24 11/04/24 History aerosol inhaler Shortness Of Breath Or Wheezing Past Med/Surg History Problem List (Updated 11/05/24 @ 00:25 by Radha Vasquez MD) Pleural effusion (Acute) Acute hypoxemic respiratory failure (Acute) Acute dehydration Counseling regarding goals of care Palliative care by specialist Thrombocytopenia Breast cancer COOL (dyspnea on exertion) Hypoxia (Acute) Deep vein thrombosis of right upper extremity (Acute) Pleural effusion (Acute) Metastatic disease (Acute) Symptomatic anemia (Acute) Pleural effusion Thrombus Secondary hyperparathyroidism Sleep apnea (Chronic) Obstructive sleep apnea History of lymph node dissection of right axilla 11/15/22 Dr. Jones History of surgery 05/24/22 Right simple mastectomy with SLN biopsy Dr. Jones Recurrent cancer of right breast (Chronic) 04/25/22 Punch biopsy skin right breast Biopsy of right axilla 10/18/22 S/P laparoscopic cholecystectomy Robotic cholecystectomy [address] Shabazz Acute cholecystitis (Acute) Mitral regurgitation (Chronic) Osteopenia (Chronic) Vitamin D deficiency (Chronic) Malignant neoplasm of upper-outer quadrant of right breast in female, estrogen receptor positive (Chronic 04/20/21) Breast cancer, right Vertigo (Acute) Uterine prolapse (Acute) Urinary urgency (Acute) Urinary frequency (Acute) Scoliosis (Acute) Ovarian cyst (Acute) Osteoporosis of forearm (Acute) Mineral deficiency (Acute) Mass of pelvis (Acute) Brady-Walker grade 3 cystocele (Acute) Arthritis (Acute) Anemia (Acute) Chronic laryngitis Dizziness HSV infection Medical History HTN (hypertension), benign Chronic cholecystitis without calculus BRCA gene mutation positive HSV-1 (herpes simplex virus 1) infection cold sores not at present Hyperlipidemia Hypercholesterolemia Surgical History Hx laparoscopic cholecystectomy (08/10/22) Robotic Laparoscopic Cholecystectomy(Not Applicable) - Pierce Shabazz DO, FACS S/P right mastectomy History of lumpectomy of right breast (06/08/21) Right Breast Lumpectomy with Preoperative Needle Localization x2 and Right Axillary Osborne Lymph Node Biopsy Dr. Taina Jones at [facility] History of ultrasound guided needle biopsy (04/20/21) Breast - Right History of biopsy (05/31/21) Breast - Right H/O colonoscopy History of dental surgery dental implant H/O thumb surgery Right + Left S/P tubal ligation Hx of BSO (bilateral salpingo-oophorectomy) Hx of tonsillectomy Family History Mother Breast cancer Sister Ovarian cancer Multiple sclerosis Aunt Ovarian cancer Maternal Uterine cancer Breast cancer Grandmother (Maternal) Cancer Father Heart disease Daughter Sarcoma Daughter BRCA gene mutation positive Social History Smoking Status: Never smoker Tobacco Type: Cigarettes packs per day: 0.4; Second Hand Exposure: No; Do You Dip or Chew Tobacco: No; Hx Alcohol Use: No Hx Substance Use: No Preferred Language: Macedonian Communication Ability: Effective Visual Impairment: Limited Hearing Ability: Use of Hearing Aid Bowling [employer]er Required: No Beliefs That Will Affect Care: None marital status: / Current Living Situation: Alone Current Living Situation Comment: goes between her home and her boyfriends home current occupational status: retired current occupation: Artist How many Children do You have: 2 How many Children do You have Comment: 1 living, 1 Other Information That Helps Us Care for You: No Feels Safe at Home: Yes Safety Concerns: Feels Safe At This Time Childhood Exposure to Second-Hand Smoke: Yes Diet: regular during the past year weight has: remained stable Dental Care, Regularly: Yes Assistive Devices: Glasses and Hearing Aid - Bilateral Review of Systems Review of Systems: see HPI Physical Exam Physical Exam: The patient is awake, alert and oriented 3, well developed and well nourished, normocephalic and atraumatic, in no acute distress. Non-toxic appearing. HEENT- EOMI, mucous membranes dry. Hearing grossly intact. Heart-normal S1 and S2. No murmurs, rubs or gallops. Lungs-decreased bilaterally, no respiratory distress, no accessory muscle use. Abdomen-normal bowel sounds and soft. No ascites noted. Non-tender. Extremities- no clubbing, cyanosis. Edema to right hand. Rheumatologic-normal range of motion. Psychiatric-normal affect. Results & Data Results & Data Vital Signs (Past 12 Hours) Vital Signs Temp Pulse Pulse Resp BP BP Pulse Ox 11/04/24 22:47 103 H 11/04/24 22:30 98 H 23 123/67 94 11/04/24 22:00 99 H 22 133/68 96 11/04/24 21:30 95 H 22 143/94 H 98 11/04/24 21:00 98 H 22 144/72 H 90 11/04/24 20:30 97 H 20 111/68 91 11/04/24 20:20 98 H 22 122/63 92 11/04/24 20:00 96 H 20 122/63 94 11/04/24 19:30 95 H 22 155/76 H 92 11/04/24 18:41 106 H 11/04/24 18:27 95 11/04/24 18:26 95 11/04/24 18:26 11/04/24 18:21 36.4 C L 100 H 24 137/67 87 L O2 Del Method O2 Flow Rate 11/04/24 22:47 11/04/24 22:30 Nasal Cannula 2 11/04/24 22:00 Nasal Cannula 2 11/04/24 21:30 Nasal Cannula 2 11/04/24 21:00 Nasal Cannula 2 11/04/24 20:30 Nasal Cannula 2 11/04/24 20:20 Nasal Cannula 2 11/04/24 20:00 Nasal Cannula 2 11/04/24 19:30 Nasal Cannula 2 11/04/24 18:41 11/04/24 18:27 Nasal Cannula 2 11/04/24 18:26 Nasal Cannula 2 11/04/24 18:26 Nasal Cannula 2 11/04/24 18:21 Room Air Laboratory Results reviewed CBC and CMP Diagnostic Findings reviewed CXR personallyright greater than left pleural effusion Medications Administered ED1.5 L NSS Code Status & VTE Plan Code Status DNR/DNI Transitioning to hospice next week VTE Prophylaxis Plan VTE Prophylaxis will be ordered: Yes Supervising Physician Co-Signing Physician Notes Attending addendum: I have physically seen this patient, have supervised the JAYLEN's activities, and agree with the H&P unless as otherwise noted. Assessment and Plan: The patient is an 83-year-old female with past medical history including breast cancer metastatic to bone status post mastectomy, lymph node dissection, chemotherapy, JULEE, symptomatic anemia, and followed by palliative care specialty. She currently is transitioning to hospice early next week to focus on quality of life. Patient presented to the emergency department today due to weakness and dehydration and feeling as though she needs IV fluids. After IV fluid resuscitation from the ED, she became hypoxic to 87% on room air, requiring 2 L nasal cannula oxygen to achieve 95%. Chest x-ray showed right greater than left pleural effusion. [facility] management of hypoxia, and arrangements to have home oxygen delivered tomorrow. She does have a history of pleural effusion status post thoracentesis on 10/16 during recent admission. Acute respiratory failure with hypoxia- Pulse ox 87% on room air after receiving 1.5 L normal saline bolus from the ED Presently on 2 L nasal cannula oxygen to achieve pulse ox in the mid 90s Chest x-ray showing right greater than left pleural effusions, worsening from recent admission Incentive spirometry Give 50 g of albumin IV now, with Lasix 40 mg IV following Repeat dosing as needed depending upon response. Dehydration- Subjective feeling of dehydration, prompted 1.5 L normal saline bolus in the ED Patient will maintain oral hydration Abnormal LFTs- Total bili 4.9, AST 266, ALT 89, alkaline phosphatase 496 in the ED Significantly worse than previous admission History of lap cholecystectomy 08/18 Likely secondary to metastatic disease. Patient does not want any further evaluation done, and does not want to have a CT abdomen pelvis to further evaluate. Thrombocytopenia- Platelets 40 on admission Close to her recent baseline Follow serial CBC with differential Breast cancer metastatic disease- Presently is transitioning to hospice care next week Hold current medications, as patient was not taking them at home Right upper extremity DVT- Small nonocclusive chronic thrombus in the distal brachial vein She prefers no anticoagulation at this time. Would be difficult with current level of platelets. PG Care Time/CCT Total # of Minutes Spent Total Time Spent with Patient: Total time spent is greater than 50% in coordination of care (as documented) at patient's floor/unit and/or counseling patient: Coding Level of Care Code 17012 INT INP/OBS CARE MIN Diagnoses Hypoxia R09.02 Pleural effusion J90 Acute dehydration E86.0 Thrombocytopenia D69.6
[2024-11-04] MEDS: FUROSEMIDE 40 MG/4 ML VIAL IV ONE (23:39)
[2024-11-04] MEDS: ALBUMIN 25% 25 GM/100 ML VIAL IV SCH (23:39)
[2024-11-04] MEDS: ONDANSETRON INJ 2 MG/ML 2 ML VIAL IV STA (23:56)
[2024-11-04] MEDS: ONDANSETRON INJ 2 MG/ML 2 ML VIAL ONE (23:56)
[2024-11-05] MEDS ORDERED: MELATONIN 3 MG TAB PO PRN (01:17)
[2024-11-05] MEDS ORDERED: ONDANSETRON INJ 2 MG/ML 2 ML VIAL IV PRN (01:17)
--- NOTE | 2024-11-05 07:08 | XRay Report ---
EXAM: XR chest 1V portable CLINICAL HISTORY: SOB, hypoxic TECHNIQUE: An X-ray image of the chest is obtained in AP projection. COMPARISON: 10/22/2024 CR FINDINGS: Pulmonary Parenchyma: Air space shadowing is seen in right mid and lower zones. Linear atelectatic bands seen in right upper and mid zones. A few tiny nodules seen in both lower zones. Obliteration of right costophrenic angle likely due to significant amount of pleural effusion. Blunting of the left costophrenic angle could be due to mild pleural effusion. Elevated dome of the right hemidiaphragm. Heart and Mediastinum: Heart size and shape are normal. No mediastinal widening or masses. No hilar or mediastinal lymphadenopathy. Bilateral hilar vascular congestive changes. Bony Thorax: Bony thorax appears intact without fractures or deformities. Soft Tissues: Soft tissues overlying the chest wall are unremarkable. IMPRESSION: New right lower lung zone pulmonary opacity seen, could be due to an acute infectious process, clinical and lab correlation needed New bilaterl plerual effusion,more on the right A few tiny nodules seen in both lower zones, unchanged Interval worsening. Electronically signed by Jase Dennis 11-05-2024 07:07 AM
[2024-11-05 08:29] LABS: Hematocrit (blood only) 24.7 % (37.0-47.0); Hemoglobin 7.7 g/dl (12.0-16.0); Mean Corpuscular Hemoglobin 33.3 pg (25.0-34.0); Mean Corpuscular Volume 106.9 fL (80.0-100.0); Platelet Count 29 K/uL (130-400); RDW Standard Deviation 77.6 fL (36.4-46.3); Red Blood Count 2.31 M/uL (4.20-5.40); White Blood Count 6.93 K/ul (4.8-10.8)
[2024-11-05 08:46] LABS: Anion Gap 9.0 (3-11); Blood Urea Nitrogen 33.0 mg/dl (6-23); Calcium 8.1 mg/dl (8.6-10.3); Carbon Dioxide 23.0 mmol/L (21-32); Chloride 106.0 mmol/L (98-107); Creatinine Clr Calc Pharmacy 32.5 ml/min; Glucose 90.0 mg/dl (70-99(Fasting)); Potassium 3.7 mmol/L (3.5-5.1); Sodium 138.0 mmol/L (136-145)
[2024-11-05 09:05] LABS: ALC (manual) 0.55 K/uL (1.2-3.4); ANC (manual) 4.71 K/uL (1.4-6.5); Polychromasia 2+; Tear Drop Cells 1+
--- NOTE | 2024-11-05 10:44 | Hospitalist Progress Note ---
Date of Service November 05, 2024 Assessment & Plan (1) Hypoxia: Plan: Acute hypoxic respiratory failure due to malignant pleural effusions. Two-step oxygen evaluation was completed today, November 05. She will require 3 L of oxygen continuously per nasal cannula. (2) Pleural effusion: Plan: Right greater than left. Thought to be of malignant etiology. Status post right thoracentesis on October 16. (3) Acute dehydration: Plan: Poor oral intake. IV fluids ordered (4) Thrombocytopenia: Plan: Platelet count is down to 29,000 but no active bleeding seen. She is a hospice candidate and no intervention at this time (5) Chronic deep vein thrombosis of right upper extremity: Plan: Symptomatic care. Plan Anticipate eventual discharge to home with hospice care. Palliative care consultation requested Admission and Anticipated Discharge Date Admission Date: November 04, 2024 Subjective Alert and oriented. Oral intake is poor. IV fluids started. Two-step evaluation was completed and she needs 3 L of oxygen continuously. Palliative care consultation requested. Platelet count is down to 29,000 but no active bleeding. She has known metastatic breast cancer and suspected malignant pleural effusions. Status post recent right thoracentesis on October 16. Review of Systems 2 Review of Systems: Constitutionalno fever or chills. Malaise, anorexia ENTno blurred vision, no double vision, no epistaxis, no sore throat Respiratoryno cough, no wheezing. Shortness of breath however Cardiacno palpitations, no chest pain, no syncope Jessika nausea, vomiting, diarrhea, melena, hematochezia GUno urinary retention, no urinary incontinence, no dysuria, no hematuria Musculoskeletalno joint pain, no muscle tenderness Skinno bruising, no rashes, no pruritus Neurono isolated weakness, no paresthesia. She does have generalized weakness Psychno depression, no anxiety Physical Exam 2 Physical Exam: General-alert and oriented x3, no fever, no chills HEENT-head atraumatic and normocephalic, pupils equal and reactive to light, extraocular muscles intact Neck-no lymphadenopathy or thyromegaly, trachea midline Chest-diminished breath sounds at both bases. No inspiratory rales, wheezing or rhonchi Cardiac-regular rate and rhythm, normal S1 and S2 Abdomen-normal bowel sounds, no hepatosplenomegaly Extremities-no cyanosis, clubbing, or edema Neuro-cranial nerves II through XII intact, motor and sensory function within normal limits, strength symmetrical with generalized weakness, no focal deficits Psych-normal affect, normal mood Results & Data Results & Data Vital Signs (Past 12 Hours) Vital Signs Temp Pulse Pulse Pulse Pulse Pulse Pulse 11/05/24 09:47 110 H 95 H 94 H 95 H 11/05/24 09:12 11/05/24 07:40 36.5 C 96 H 11/05/24 04:00 36.5 C 91 H 11/05/24 00:33 96 H 11/05/24 00:24 11/05/24 00:24 36.7 C 94 H 11/04/24 22:47 103 H Resp Resp Resp Resp Resp BP Pulse Ox 11/05/24 09:47 24 20 20 20 11/05/24 09:12 11/05/24 07:40 18 146/70 H 96 11/05/24 04:00 18 131/73 96 11/05/24 00:33 11/05/24 00:24 11/05/24 00:24 18 137/69 96 11/04/24 22:47 Pulse Ox Pulse Ox Pulse Ox Pulse Ox O2 Del Method O2 Flow Rate O2 Flow Rate 11/05/24 09:47 90 88 L 91 85 L 3 11/05/24 09:12 Nasal Cannula 3 11/05/24 07:40 Nasal Cannula 2 11/05/24 04:00 Nasal Cannula 3 11/05/24 00:33 11/05/24 00:24 Nasal Cannula 3 11/05/24 00:24 Nasal Cannula 3 11/04/24 22:47 O2 Flow Rate O2 Flow Rate 11/05/24 09:47 2 3 11/05/24 09:12 11/05/24 07:40 11/05/24 04:00 11/05/24 00:33 11/05/24 00:24 11/05/24 00:24 11/04/24 22:47 Laboratory Results 11/05/24 05:48 11/05/24 05:48 PG Care Time/CCT Total # of Minutes Spent Total Time Spent with Patient: Total time spent is greater than 50% in coordination of care (as documented) at patient's floor/unit and/or counseling patient: Coding Level of Care Code 90019 SUB INP/OBS CARE 3/50MIN Diagnoses Hypoxia R09.02 Pleural effusion J90 Acute dehydration E86.0 Thrombocytopenia D69.6 Chronic deep vein thrombosis of right upper extremity I82.721
[2024-11-05] MEDS: SODIUM CHLORIDE 0.9% 1,000 ML IV SCH (11:42)
--- NOTE | 2024-11-05 13:11 | Palliative Care Consultation ---
Date of Consultation November 05, 2024 Assessment & Plan (1) Nausea: Inc to Zofran 8mg IV BID (2) Weakness generalized: (3) Gait instability: PT eval for cane vs walker assessment. (4) Advanced care planning/counseling discussion: A 30 min face to face ACP meeting was held with Melia and her beau at bedside. They are hoping for home with hospice. She was already in touch with [facility] before her trip to [place] and spoke with Sherlyn this past Sunday. At patient's request, I notified Sherlyn of her admission and Sherlyn is en route to see her/meet with them together per pt request. She can be dc home with [facility] when stable but it is already in place and no new orders or referrals are needed. We discussed improving nausea regimen with scheduled Zofran and I asked for PT eval to assess for walker vs cane. [facility] is seeing her now Discussed changes pt may move through in the dying process including but not limited to sleeping more, disorientation when awake, restlessness, diminished senses/inability to respond to stimulus although ability to be aware of them remains intact longer, changes in body temperatures, skin changes/mottling/cyanosis, respiratory pattern changes, oral secretions. Family verbalized understanding. The goal is to assure a peaceful . (5) Palliative care by specialist: Introduced Palliative Medicine and explained our role in patient's care. Patient and/or family were receptive to palliative services for goals of care discussions. Reviewed we are different from hospice, a home health nurse visiting service. (6) Encounter for hospice care discussion: I provided education about the hospice benefit: an interdisciplinary program offered by nurses, nurses aides, social workers, chaplains and a medical territory manager for patients with a terminal condition and a life expectancy of less than 6 months. This is covered by Medicare at 100%/no out of pocket expense to patient and all meds/supplies needed by patient for the reason they are on hospi ce are paid for/covered by hospice. The goal is assure quality of life of the patient in their home setting (home, senior care, inpatient hospice setting) by providing symptoms management, psychosocial and spiritual support. However, they cannot offer 24 hours care and if the family is unable to provide that care, they will have to consider personal care with out of pocket cost vs. senior care placement. We discussed the goals of hospice as a patient service and the goals of care; we discussed EOL trajectories and transitions michelle the emotional impact of realizing mortality as a concrete reality from prior abstract considerations. Pt was reassured that no matter where they are along this trajectory, they are not alone - their medical team will remain by their side through their journey. Discussed the pros/cons of accepting help when especially weakened and distressed by pain-which would also help provide relief/decrease caregiver burden/strain. Plan As above Thank you for allowing us to participate in the ongoing care of this patient. Please page with any additional concerns. 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 She feels extremity dehydrated. She states she is starting hospice in the next few days. Her goal is to peacefully. She would like to avoid admission if possible. She states she is here for rehydration therapy." Melia is seen bedside together with her longtime boyfriend who is here from [place]. They split their time between and [place] PMH: RIGHT breast cancer/ER/[place] +. 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 Tamoxifen August 2021 to November 2022 then changed to Anastrazole Proton therapy at [facility] 15 sessions completed 02/02/23 Anastrazole November 2022 to May 2024 Olaparib Feb 2023 to Jan 2024 Abemacilib Mar 2024 x 2 weeks stopped d/t intolerance: diarreha, weight loss, weakness Faslodex started 05/13/24 - tolerated well Saw Dr Haq at [facility] who suggested Ibrance lower dose started May 2024 and continue Faslodex. XGeva statrted 07/09/24 currently transitioning to hospice early next week to focus on quality of life. +h/o RUE DVT and significant pleural effusion requiring thoracentesis 10/16 during recent admission. She feels there might be fluid reaccumulating in her lung. She perceives being told she is not a candidate for this fluid to be drained again. CXR 11/04 reports: "New right lower lung zone pulmonary opacity seen, could be due to an acute infectious process, clinical and lab correlation needed. New bilateral pleural effusion,more on the right. A few tiny nodules seen in both lower zones, unchanged. +Interval worsening." She does not endorse acute dyspnea or pain She feels tired. Sometimes a little off balance with positional changes. She would like a walker for some safety. Appetite declining Admits she is not drinking enough Sometimes she feels nausea but not chronically [facility] Sep [facility]24: Increase in metabolic activity of osteoblastic mets and bilat pleural effusions. Increase in metab activity of sclerotic lesions: right superior pubic ramus, sacral promontory, right lesser trochanter, right sacrum. Allergies Allergy/AdvReac Type Severity Reaction Status Date / Time garlic Allergy Intermediate Gastrointestinal Unverified 11/04/24 19:23 Upset tetracycline Allergy Unknown BRUISING; Verified 11/04/24 19:23 rash on legs Home Medications Medication Instructions Recorded Confirmed Type atorvastatin 20 mg tablet 20 mg PO DAILY 05/15/19 11/04/24 History calcitriol 0.25 mcg capsule 0.25 mcg PO DAILY #30 caps 07/30/24 11/04/24 Rx anastrozole 1 mg tablet 1 mg PO DAILY 10/14/24 11/04/24 History levothyroxine 50 mcg tablet 50 mcg PO DAILYBB 10/14/24 11/04/24 History albuterol sulfate 90 mcg/actuation 2 puff inhalation Q6H PRN 11/04/24 11/04/24 History aerosol inhaler Shortness Of Breath Or Wheezing Patient History Medical History HTN (hypertension), benign Chronic cholecystitis without calculus BRCA gene mutation positive HSV-1 (herpes simplex virus 1) infection cold sores not at present Hyperlipidemia Hypercholesterolemia Surgical History Hx laparoscopic cholecystectomy (08/10/22) Robotic Laparoscopic Cholecystectomy(Not Applicable) - Pierce Shabazz DO, FACS S/P right mastectomy History of lumpectomy of right breast (06/08/21) Right Breast Lumpectomy with Preoperative Needle Localization x2 and Right Axillary [place] Lymph Node Biopsy Dr. Taina Jones at [facility] History of ultrasound guided needle biopsy (04/20/21) Breast - Right History of biopsy (05/31/21) Breast - Right H/O colonoscopy History of dental surgery dental implant H/O thumb surgery Right + Left S/P tubal ligation Hx of BSO (bilateral salpingo-oophorectomy) Hx of tonsillectomy Family History Mother Breast cancer Sister Ovarian cancer Multiple sclerosis Aunt Ovarian cancer Maternal Uterine cancer Breast cancer Grandmother (Maternal) Cancer Father Heart disease Daughter Sarcoma Daughter BRCA gene mutation positive Social History Smoking Status: Never smoker Tobacco Type: Cigarettes packs per day: 0.4; Second Hand Exposure: No; Do You Dip or Chew Tobacco: No; Hx Alcohol Use: No Hx Substance Use: No Preferred Language: Azeri Communication Ability: Effective Visual Impairment: Limited Hearing Ability: Use of Hearing Aid Radiology Administrator Required: No Beliefs That Will Affect Care: None marital status: / Current Living Situation: Alone Current Living Situation Comment: goes between her home and her boyfriends home current occupational status: retired current occupation: Artist How many Children do You have: 2 How many Children do You have Comment: 1 living, 1 Other Information That Helps Us Care for You: No Feels Safe at Home: Yes Safety Concerns: Feels Safe At This Time Childhood Exposure to Second-Hand Smoke: Yes Diet: regular during the past year weight has: remained stable Dental Care, Regularly: Yes Assistive Devices: Glasses and Hearing Aid - Bilateral Review of Systems Review of Systems: All systems reviewed & are unremarkable except as noted in Subjective Physical Exam Constitutional: + ill appearing, + thin, + physical limi tations, + frail appearing, well groomed and cooperative Eyes: PERRL, conjunctivae normal, anicteric sclerae ENMT: Mouth: + dry oral mucous membranes and + dental restorations Throat: uvula midline Neck: trachea midline, no thyromegaly Respiratory: normal respiratory effort, able to speak in complete sentences and symmetric chest movement; no cough Auscultation: lungs clear to auscultation bilaterally; no crackles, no rales, no rhonchi and no wheezes Cardiovascular: Rate/Rhythm: regular rate and regular rhythm Heart Sounds: normal S1 and normal S2 Gastrointestinal (Abdomen): normal bowel sounds, soft, nontender, no hepatosplenomegaly Musculoskeletal: gen weakness Skin: pale, cool. decreased turgor radiation changes right anterior chest wall Neurologic: PERRL, EOMI, accommodation nl, no face palsy, no dysarthria Psychiatric: A+Ox3, euthymic affect Results & Data Vital Signs (Past 12 Hours) Vital Signs Temp Pulse Pulse Pulse Pulse Pulse Resp 11/05/24 11:11 36.6 C 96 H 18 11/05/24 09:47 110 H 95 H 94 H 95 H 11/05/24 09:12 11/05/24 07:40 36.5 C 96 H 18 11/05/24 04:00 36.5 C 91 H 18 Resp Resp Resp Resp BP Pulse Ox Pulse Ox 11/05/24 11:11 133/77 94 11/05/24 09:47 24 20 20 20 90 11/05/24 09:12 11/05/24 07:40 146/70 H 96 11/05/24 04:00 131/73 96 Pulse Ox Pulse Ox Pulse Ox O2 Del Method O2 Flow Rate O2 Flow Rate O2 Flow Rate 11/05/24 11:11 Nasal Cannula 2 11/05/24 09:47 88 L 91 85 L 3 2 11/05/24 09:12 Nasal Cannula 3 11/05/24 07:40 Nasal Cannula 2 11/05/24 04:00 Nasal Cannula 3 O2 Flow Rate 11/05/24 11:11 11/05/24 09:47 3 11/05/24 09:12 11/05/24 07:40 11/05/24 04:00 Laboratory Results 11/05/24 11/04/24 Range/Units 05:48 18:38 WBC 6.93 9.68 (4.8-10.8) K/ul RBC 2.31 L 2.96 L (4.20-5.40) M/uL Hgb 7.7 L 10.0 L (12.0-16.0) g/dl Hct 24.7 L 31.2 L (37.0-47.0) % MCV 106.9 H 105.4 H (80.0-100.0) fL MCH 33.3 33.8 (25.0-34.0) pg MCHC 31.2 L 32.1 (32.0-36.0) g/dL RDW Std Deviation 77.6 H 76.3 H (36.4-46.3) fL RDW Coeff of Buzz 20.3 H 20.1 H (11.5-14.5) % Plt Count 29 L* 40 L (130-400) K/uL Absolute Nucleated RBC 0.69 H 1.34 H (0.00-0.12) K/uL Nucleated RBC % (auto) 10.0 13.8 % Neutrophils % (Manual) 68 61 % Lymphocytes % (Manual) 8 15 % Monocytes % (Manual) 5 8 % Eosinophils % (Manual) 1 2 % Basophils % (Manual) 3 2 % Metamyelocytes % (Man) 7 8 % Myelocytes % (Man) 8 4 % Neutrophils # (Manual) 4.71 5.90 (1.40-6.50) K/uL Total Absolute Neuts 4.71 5.90 (1.4-6.5) K/uL Lymphocytes # (Manual) 0.55 L 1.45 (1.2-3.4) K/uL Total Abs Lymphocytes 0.55 L 1.45 (1.2-3.4) K/uL Monocytes # (Manual) 0.35 0.77 H (0.11-0.59) K/uL Eosinophils # (Manual) 0.07 0.19 (0-0.50) K/uL Basophils # (Manual) 0.21 H 0.19 (0-0.2) K/uL Metamyelocytes # (Man) 0.49 H 0.77 H (0-0) K/uL Myelocytes # (Manual) 0.55 H 0.39 H (0-0) K/uL Toxic Granulation 1+ Polychromasia 2+ 2+ Anisocytosis Present Tear Drop Cells 1+ 1+ Ovalocytes 1+ Sodium 138 138 (136-145) mmol/L Potassium 3.7 D 4.9 (3.5-5.1) mmol/L Chloride 106 105 (98-107) mmol/L Carbon Dioxide 23 24 (21-32) mmol/L Anion Gap 9 9 (3-11) BUN 33 H 37 H (6-23) mg/dl Creatinine 1.02 1.18 (0.6-1.2) mg/dl Est Cr Clr Drug Dosing 32.5 28.4 ml/min eGFR 53.91 45.26 BUN/Creatinine Ratio 32.4 H 31.4 H (10-20) Glucose 90 114 H (70-99(Fasting)) mg/dl Calcium 8.1 L 8.6 (8.6-10.3) mg/dl Phosphorus 4.0 (2.5-4.9) mg/dl Total Bilirubin 4.9 H (0.2-1.0) mg/dl AST 266 H (13-39) U/L ALT 89 H (7-52) U/L Alkaline Phosphatase 496 H (34-104) U/L Total Protein 5.3 L (6.0-8.3) gm/dl Albumin 3.6 2.9 L (3.4-5.0) gm/dl Globulin 2.4 L (2.5-4.0) gm/dl Albumin/Globulin Ratio 1.2 (0.9-2) PG Care Time/CCT Total # of Minutes Spent Total Time Spent with Patient: Total time spent is greater than 50% in coordination of care (as documented) at patient's floor/unit and/or counseling patient: I spent 105 minutes overall addressing this case: 20 min in medical data review/discussion with referring provider(s) and/or preparation for the visit incl OSH data/[facility] EMR Link 20 min in direct interaction with the patient/exam 30 min in Advance Care Planning/Goals of Care discussions as detailed above in note (must be >16min) 15 min in subsequent review and synthesis of assessment and plan 20 min communicating with other providers regarding the patient's case: nursing, care mgt, primary team, [facility], [facility] med on/Dr Vasquez Advanced Care Planning 50496 Advanced Care Planning 30 [place] [address] IN/OBS CONSULT LVL 5,80M (25 - SIGNIFICANT, SEPARATELY IDENTIFIABLE ) Patient Type New Medical Decision Making High Complexity Diagnoses Nausea R11.0 Weakness generalized R53.1 Gait instability R26.81 Advanced care planning/counseling discussion Z71.89 Palliative care by specialist Z51.5 Encounter for hospice care discussion Z. Additional Codes Advanced Care Planning - 21602 Advanced Care Planning 30 Min: 38738 Advanced Care Planning 30 Min ([id number]) Comment [id number], [id number]
[2024-11-05] MEDS ORDERED: ONDANSETRON INJ 2 MG/ML 2 ML VIAL IV SCH (21:00)
[2024-11-06] MEDS: DOCUSATE SODIUM 100 MG CAP PO PRN (08:41)
[2024-11-06 11:23] VITALS: BP 145/80; RESP 18; TEMP 97.5; O2SAT 93
--- NOTE | 2024-11-06 11:52 | Discharge Summary ---
Discharge Summary Date of Service November 06, 2024 Principal Dx & Hospital Course #1 = Principal Diagnosis (1) Hypoxia: Acute hypoxic respiratory failure due to malignant pleural effusions. Two-step oxygen evaluation was completed on November 05. She requires 3 L of oxygen continuously per nasal cannula. (2) Pleural effusion: Right greater than left. Thought to be of malignant etiology. Status post right thoracentesis on October 16. (3) Acute dehydration: Poor oral intake. IV fluids administered while hospitalized (4) Thrombocytopenia: Platelet count declined to 29,000 but no active bleeding seen. She is a hospice candidate and no intervention at this time (5) Chronic deep vein thrombosis of right upper extremity: Symptomatic care. Plan Discharge to home with hospice care today, November 06 Admission HPI Per Admitting Provider Patient is an 83-year-old female with a past medical history including breast cancer with metastasis to bone s/p mastectomy, lymph node dissection, and chemotherapy currently transitioning to hospice early next week to focus on quality of life. She has a noted history of right upper extremity DVT and significant pleural effusion requiring thoracentesis 10/16 during recent ad mission. Patient presented today due to weakness and dehydration and feeling as though she needed IV fluids. After IVF resuscitation patient became hypoxic at 87% on room air requiring 2L NC and CXR showed right greater than left pleural effusion. She is being admitted to have home oxygen set up in the morning and for hypoxia control. Patient seen at bedside. She stated she has not been eating or drinking well and has been extremely weak so she came in because she felt dehydrated and wanted IV fluids. Her ultimate goal is to return home as she is transitioning to hospice early next week and she has the papers ready to go. She is not yet on hospice however has discontinued all of her home medications and chemotherapy treatments. Patient stated she does have intermittent constipation resulting in diarrhea that she had yesterday. She does endorse recent nausea however no vomiting in the past 24 hours. She denies fevers, chills, chest pain, shortness of breath, abdominal pain. She stated she did aspirate fluid several weeks ago but denies any cough, congestion, or dyspnea since. She does not use any oxygen at baseline and does not use any CPAP/BiPAP for sleep apnea. She wishes to maintain her DNR/DNI status. Discussed with ER provider and case management, patient unable to go home requiring oxygen and unable to set up with home oxygen overnight. Discharge Exam General-alert and oriented x3, no fever, no chills HEENT-head atraumatic and normocephalic, pupils equal and reactive to light, extraocular muscles intact Neck-no lymphadenopathy or thyromegaly, trachea midline Chest-diminished breath sounds at both bases. No inspiratory rales, wheezing or rhonchi Cardiac-regular rate and rhythm, normal S1 and S2 Abdomen-normal bowel sounds, no hepatosplenomegaly Extremities-no cyanosis, clubbing, or edema Neuro-cranial nerves II through XII intact, motor and sensory function within normal limits, strength symmetrical with generalized weakness, no focal deficits Psych-normal affect, normal mood Discharge Plan Discharge Items Patient Disposition: Hospice - Home Reason For Visit: HYPOXIA Discharge Diagnosis: Acute hypoxic respiratory failure, suspected malignant pleural effusions, metastatic breast cancer, thrombocytopenia, generalized weakness Condition on Discharge: Fair Activity: Resume your previous activity Non-emergency contact: Primary Care Provider and Oncologist Call non-emergency contact if: your symptoms worsen Follow-up/Referrals: Mirtha Comer [Primary Care Provider] - Diet: Regular Addtl Attending Provider Instructions: Wear oxygen at all times at 3 L/min. All medications remain the same Pending Studies at Discharge: No Stand-Alone Forms: [facility] Medications and DC Order Prescriptions: New docusate sodium 100 mg Capsule 100 mg PO BID PRN (Reason: constipation) Qty: 0 0RF Continued calcitriol 0.25 mcg capsule 0.25 mcg PO DAILY Qty: 30 3RF atorvastatin 20 mg tablet 20 mg PO DAILY Hold Instructions: discuss with Dr. Vasquez anastrozole 1 mg tablet 1 mg PO DAILY Hold Instructions: Resume on 10/21/24. discuss with Dr. Vasquez levothyroxine 50 mcg tablet 50 mcg PO DAILYBB albuterol sulfate 90 mcg/actuation HFA aerosol inhaler 2 puff INHALATION Q6H PRN (Reason: Shortness Of Breath Or Wheezing) Discharge Orders: Discharge Order (Routine); Ordered 11/06/24 Ordered By: Ady Foote Admission Data Admit Date/Time: 11/04/24 23:11 Attending Provider: Ady Foote Admit Provider: Sander Hui Primary Care Provider: Mirtha Comer Other Providers: Sander Hui; Chelle Wilson; [facility] Hospital Stay Data Consultations 11/04/24 22:58 ED Decision to Admit Stat 11/05/24 10:36 Consult Palliative Care Routine Pending Results Patient Have Any Pending Studies at Discharge: No Discharge Instructions Given to Patient (Per Discharging Provider) Wear oxygen at all times at 3 L/min. All medications remain the same Total Time Total Time Spent Total Time Spent (In Minutes): 45 minutes Coding Level of Care Code 18434 INP/OBS DISCH >30 MIN Diagnoses Hypoxia R09.02 Pleural effusion J90 Acute dehydration E86.0 Thrombocytopenia D69.6 Chronic deep vein thrombosis of right upper extremity I82.721
[2024-11-06 12:02] VITALS: PULSE 98
== END 2024-11-06 13:34 | disposition hospice, home (50) | DRG 189 ==
LOC: ED 18:08 → SUATTDRO 23:11 → 2N 23:11